=== PATIENT | male | born 1980 | race Caucasian/White ===

== ENCOUNTER 2017-01-21 14:39 | Inpatient (IN) | payer OTHER ==
[~2017-01-21] VITALS: Ht 172.7 cm; Wt 77.0 kg
[~2017-01-21 14:39] MED LIST: CYCL10TA6 PO; FLUT0.0529 NAE; HYDR-5688 PO; IBUP-103 PO; LANS30CA12 PO; PROP10TA7 PO; RANI1TAB75 PO; RST15 PO
[2017-01-21] MEDS ORDERED: FLNIN/ NAE (15:54)
[2017-01-21] MEDS ORDERED: ERYOPO1 OPR (15:54)
[2017-01-21] MEDS ORDERED: LANS30CA63 PO (15:54)
[2017-01-21] MEDS ORDERED: CYCL10TA7 PO (15:54)
[2017-01-21] MEDS ORDERED: BUPR100T8 PO (15:54)
--- NOTE | 2017-01-21 15:56 | EMERGENCY ROOM VISIT NOTE ---
History Report prepared by Zayra: Tristin Otero Under the Supervision of: Dr. Tristin Herbert M.D. First contact with patient: 15:14 Chief Complaint: DIZZY Stated Complaint: DIZZY Nursing Triage Summary: Pt reports "I started getting dizzy this morning. 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 He notes he had some dizziness this morning upon getting out of the shower before work. This occurred around 9:30. He notes this episode lasted about 15 minutes, and described it as "lightheadedness", but denies experiencing the room spinning. The episode resolved on its own. He still went to work, but throughout the day noticed left arm and hand weakness to the point where he was dropping things. He has been walking fine, and has not had any leg weakness. He reports having back pain at baseline, but that it was worse this morning which he describes as stiffness. The patient denies having any headache, difficulty speaking or swallowing, visual changes, or neck pain. He notes having a history of reflux and palpitation, and a family history of diabetes. He smokes, and drinks some alcohol. 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 Source of History: patient, spouse/significant other Onset: about 6 days ago Position: other (global) Symptom Intensity: episode lasting 15 minutes Quality: other (dizziness; "lightheadedness") Timing: other (episode) Associated Symptoms: + back pain (worse than baseline), + weakness (left arm and left hand; no leg weakness), No headache, No neck pain Note: The patient denies any difficulty speaking or swallowing, or visual changes. Review of Systems See HPI for pertinent positives & negatives. A total of 10 systems reviewed and were otherwise negative. Past Medical & Surgical Medical Problems: (1) Acute right MCA stroke (2) GERD (gastroesophageal reflux disease) (3) Hemorrhoid (4) Left hand weakness (5) Perianal abscess Old medical records were reviewed. Nurse's notes were reviewed and I agree with. Family History Diabetes mellitus Gallbladder disease Hypertension Social History Smoking Status: Current Every Day Smoker Alcohol Use: occasionally Marital Status: Housing Status: lives with significant other Occupation Status: employed Current/Historical Medications Scheduled Bupropion (Wellbutrin Sr), 100 MG PO AFTERNOON Bupropion HCl (Bupropion HCl Sr), 150 MG PO QAM Erythromycin (Erythromycin), 1 APPLN OPR QID Lansoprazole (Prevacid), 30 MG PO DAILY Multiple Vitamins W/ Minerals (Multi Adult Gummies), 2 TABS PO QAM Scheduled PRN Cyclobenzaprine HCl (Cyclobenzaprine HCl), 10 MG PO HS PRN for Muscle Spasm Fluticasone Propionate (Fluticasone Propionate), 1 SPRAY PANKAJ BID PRN for Allergy Symptoms Hydrocodone/Acetaminophen 5MG/325MG (Stroud 5MG/325MG), 0.5-1 TABLET PO BID PRN for Pain Ibuprofen Tab (Advil), 200-600 MG PO Q4H PRN for Pain Lorazepam (Lorazepam), 0.5 MG PO BID PRN for Anxiety Allergies Coded Allergies: Ciprofloxacin (Verified Allergy, Intermediate, NUEROMUSCULAR SPASMS/ TREMORS, 05/20/16) Physical Exam Vital Signs Date Time Temp Pulse Resp B/P Pulse Ox O2 Delivery O2 Flow Rate FiO2 01/21/17 22:57 74 18 109/64 96 Room Air Manual 01/21/17 20:25 63 18 116/68 97 Room Air 01/21/17 18:20 66 16 133/77 98 Room Air 01/21/17 16:30 50 16 128/69 99 Room Air 01/21/17 14:42 36.9 81 18 143/89 99 Room Air Physical Exam General: Non ill appearing young male in no acute distress. HEENT: Normal cephalic atraumatic. Pupils are equal round and reactive to light. Extraocular movements are intact. Oropharynx is pink with moist mucous membranes. No swelling of the mouth lips or tongue. Neck: Supple with a midline trachea. No meningeal signs or stiffness, no JVD or bruits. No Stridor. Chest: Clear to auscultation bilaterally. No wheezes or rhonchi. No increased work of breathing. Heart: regular rate and rhythm. Abdomen: Soft nontender, nondistended without rebound guarding or rigidity. Extremities: No cyanosis clubbing or edema. No calf tenderness or assymetry Spine/Back. Non tender to palpation. No CVA tenderness Skin: Good turgor without rashes. Neurologic exam: Equal wax molder strength, questionable mild pronator drift on left. Finger to nose intact. Cranial nerves II through XII intact. No tremor. Medical Decision & Procedures ER Provider Diagnostic Interpretation: X ray results as stated below per my interpretation and radiologist interpretation. Other radiology results as stated below per my review and radiologist interpretation: HEAD CT NONCONTRAST Findings: The paranasal sinuses and mastoid air cells are clear. The calvarium and skull base are intact. The ventricles and sulci are within normal limits. There is no mass, hematoma, midline shift, or acute infarct. Impression: No acute intracranial abnormality. Electronically signed by: Scotty Rossi M.D. 01/21/2017 4:25 PM Dictated Date/Time: 01/21/2017 4:24 PM Brain MRA FINDINGS: Visualized intracranial internal carotid arteries, distal vertebral arteries, and basilar artery are widely patent. 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 Focal 5 mm cutoff within a proximal right M2 branch best seen on image 89 of 176. There is reconstitution of this branch which demonstrates diminished perfusion. The remaining portions of the right MCA are patent. IMPRESSION: Focal 5 mm cutoff within a proximal M2 branch of the right MCA with immediate reconstitution but diminished perfusion. This is consistent with an area of thrombus. Electronically signed by: Rudy George M.D. 01/21/2017 8:35 PM Dictated Date/Time: 01/21/2017 7:44 PM Brain MRI WITH AND WITHOUT CONTRAST FINDINGS: Focal area of restricted diffusion within the right subinsular cortex measuring approximately 3.0 x 1.3 cm. This is consistent with an acute right MCA territory infarct and corresponds the findings of the same day brain MRA. There is associated cytotoxic edema at this location. There is no mass, hematoma, or midline shift. The paranasal sinuses and mastoid air cells are clear. Single punctate focus of T2 hyperintensity within the periventricular white matter the right frontal lobe likely represents an old lacunar infarct. Loss of the normal flow-void within a M2 branch of the right MCA consistent with the thrombus vessel. IMPRESSION: Small focal right MCA territory infarct as described above corresponding to the thrombosed M2 branch on the same day brain MRA. Electronically signed by: Rudy George M.D. 01/21/2017 8:26 PM Dictated Date/Time: 01/21/2017 8:19 PM NECK MRA FINDINGS: The aortic arch and proximal great vessels are widely patent. There is no significant stenosis, occlusion, or dissection identified within the bilateral common carotid, internal carotid, or vertebral arteries. IMPRESSION: No significant stenosis, occlusion, or dissection identified within the carotid or vertebral arteries. Electronically signed by: Rudy George M.D. 01/21/2017 8:17 PM Dictated Date/Time: 01/21/2017 8:14 PM Laboratory Results 01/21/17 15:16 Red Blood Count 5.47, Mean Corpuscular Volume 85.6, Mean Corpuscular Hemoglobin 30.9, Mean Corpuscular Hemoglobin Concent 36.1, Mean Platelet Volume 10.8, Neutrophils (%) (Auto) 76.1, Lymphocytes (%) (Auto) 15.4, Monocytes (%) (Auto) 6.6, Eosinophils (%) (Auto) 1.5, Basophils (%) (Auto) 0.2, Neutrophils # (Auto) 8.48, Lymphocytes # (Auto) 1.71, Monocytes # (Auto) 0.73, Eosinophils # (Auto) 0.17, Basophils # (Auto) 0.02 01/21/17 15:16 Test 01/21/17 15:16 01/21/17 16:36 01/21/17 22:36 White Blood Count 11.13 K/uL (4.8-10.8) Red Blood Count 5.47 M/uL (4.7-6.1) Hemoglobin 16.9 g/dL (14.0-18.0) Hematocrit 46.8 % (42-52) Mean Corpuscular Volume 85.6 fL (80-100) Mean Corpuscular Hemoglobin 30.9 pg (25-34) Mean Corpuscular Hemoglobin Concent 36.1 g/dl (32-36) Platelet Count 221 K/uL (130-400) Mean Platelet Volume 10.8 fL (7.4-10.4) Neutrophils (%) (Auto) 76.1 % Lymphocytes (%) (Auto) 15.4 % Monocytes (%) (Auto) 6.6 % Eosinophils (%) (Auto) 1.5 % Basophils (%) (Auto) 0.2 % Neutrophils # (Auto) 8.48 K/uL (1.4-6.5) Lymphocytes # (Auto) 1.71 K/uL (1.2-3.4) Monocytes # (Auto) 0.73 K/uL (0.11-0.59) Eosinophils # (Auto) 0.17 K/uL (0-0.5) Basophils # (Auto) 0.02 K/uL (0-0.2) RDW Standard Deviation 39.9 fL (36.4-46.3) RDW Coefficient of Variation 12.7 % (11.5-14.5) Immature Granulocyte % (Auto) 0.2 % Immature Granulocyte # (Auto) 0.02 K/uL (0.00-0.02) Anion Gap 9.0 mmol/L (3-11) Est Creatinine Clear Calc Drug Dose 99.8 ml/min Estimated GFR () 113.7 Estimated GFR (Non- 98.1 BUN/Creatinine Ratio 5.5 (10-20) Calcium Level 9.6 mg/dl (8.5-10.1) Total Bilirubin 0.5 mg/dl (0.2-1) Direct Bilirubin 0.1 mg/dl (0-0.2) Aspartate Amino Transf (AST/SGOT) 22 U/L (15-37) Alanine Aminotransferase (ALT/SGPT) 52 U/L (12-78) Alkaline Phosphatase 72 U/L (45-117) Total Protein 8.0 gm/dl (6.4-8.2) Albumin 4.8 gm/dl (3.4-5.0) Lipase 117 U/L (73-393) Bedside Troponin I 0.000 ng/ml (0-0.045) Laboratory studies as stated above per my review. Medications Administered Medications (Trade) Dose Ordered Sig/Arcelia Route Start Time Stop Time Status Last Admin Dose Admin Aspirin 324 mg 324 mg NOW STAT PO 01/21/17 20:53 01/21/17 20:54 DC 01/21/17 21:22 324 MG Sodium Chloride (Nss 1000ml) 1,000 ml @ 150 mls/hr Q6H40M ONCE IV 01/21/17 20:53 01/22/17 03:32 01/21/17 21:26 150 MLS/HR ECG Indication: other (dizziness) Rate (beats per minute): 79 Rhythm: normal sinus Findings: PVC (frequent), no acute ischemic change Comparison ECG Date: May 20, 2016 Change: PVCs now present. ED Course 1542: Past medical records reviewed. The patient was evaluated in room A9B, and a complete history and physical examination were performed. 1910: I reassessed the patient, he is resting comfortably waiting for CT. The charge nurse is checking to send the patient to CT. 2011: I spoke with Dr. Corea about the patient's case, who requested to see the MRA results. 2014: Ordered Magnevist 20 ml IV. 2041: I reassessed the patient and he is doing well. He has normal wax molder strength and some dizziness with walking, but feels better. 2052: Ordered NSS 1,000 ml @ 150 mls/hr IV, and Aspirin 324 mg PO. 2099: I spoke with Dr. Valero about the patient's case. The patient will be further evaluated and managed for disposition. 2154: I spoke with Dr. Crawford about the patient's case. She did not feel there was any technology at [facility] that would necessitate transfer and she recommended cardiac workup. Medical Decision Differentials include TIA, CVA, intracranial process, electrolyte or metabolic abnormality, vascular problems, and musculoskeletal problem. This patient comes in as described above. He was placed in room A9. He comes in after having an episode of dizziness this morning around 9:30. He went to work and was functioning normal except for he kept dropping things out of his left hand and felt clumsy. Besides that he's been otherwise asymptomatic and had no further dizziness. No trouble speaking or swallowing. No numbness weakness of his legs. No history of similar. No fall or trauma. IV access established. CAT scan of his head was obtained and multiple blood testing was obtained. He has some ectopy on this EKG but no ischemic changes or A. fib. He has so significant electrolyte or metabolic abnormalities. CAT scan was head is unremarkable. I did further discuss the case with Dr. Corea, who recommended MRI of his brain and MRA of the head and neck. The MRA and CAT scan of his head shows a M2 CVA thrombus. There appears to be good collaterals and no other abnormalities acutely seen except There may be an old frontal lacunar infarct. The patient was given aspirin 324 mg chewable as well as IV hydration. The patient was not given TPA as his symptoms were well outside the window and were extremely mild. He has some clumsiness of the left hand but no focal deficit with exception of mild pronator drift. I rechecked him later and he feels like his hands much better and he has no pronator drift. I did consult Dr. Cody, who saw the patient ER and I also talked to the stroke neurologist from [facility]. She did not feel there is any other interventions they had to offer there that we do not have here. She recommended hydration and aspirin and consideration for Keppra 500 mg twice a day. I did pass these recommendations on to Dr. Cody and the admitting team. The patient will be admitted for further treatment and evaluation from acardiac and thrombotic workup as well. The patient and his were happy with the plan and he will be admitted. Consults Time Called: 2057 Consulting Physician: Dr. Valero Returned Call: [address] Valero about the patient's case. The patient will be further evaluated and managed for disposition. Additional Consults: Time Called: 2004 Consulted Physician: Dr. Corea Returned Call: 2011 Additional Comments: I spoke with Dr. Corea about the patient's case, who requested to see the MRA results. Time Called: 2149 Consulted Physician: Dr. Crawford, Stroke Neurology at [facility] Returned Call: 2154 Additional Comments: I spoke with Dr. Crawford about the patient's case. She did not feel there was any technology at [facility] that would necessitate transfer and she recommended cardiac workup. Impression Primary Impression: CVA (cerebral vascular accident) Additional Impression: Left hand weakness Scribe Attestation The scribe's documentation has been prepared under my direction and personally reviewed by me in its entirety. I confirm that the note above accurately reflects all work, treatment, procedures, and medical decision making performed by me. Departure Information Dispostion Being Evaluated By Hospitalist Referrals Jair Casas PA-C (PCP) Patient Instructions My [facility] Problem Qualifiers
[2017-01-21 16:03] LABS: BASO % 0.2 %; BASO ABS # 0.02 K/uL (0-0.2); COMPLETE YES; EOS % 1.5 %; HEMATOCRIT 46.8 % (42-52); IG% 0.2 %; LYMPH % 15.4 %; LYMPH ABS # 1.71 K/uL (1.2-3.4); MEAN CELL VOLUME 85.6 fL (80-100); MEAN CORPUSCULAR HEMOGLOBIN 30.9 pg (25-34); MEAN CORPUSCULAR HGB CONC 36.1 g/dl (32-36); MEAN PLATELET VOLUME 10.8 fL (7.4-10.4); MONO % 6.6 %; NEUT % 76.1 %; PLATELET COUNT 221 K/uL (130-400); RED BLOOD COUNT 5.47 M/uL (4.7-6.1); WHITE BLOOD COUNT 11.13 K/uL (4.8-10.8)
[2017-01-21 16:11] LABS: BUN/CREATININE RATIO 5.5 (10-20); CALCIUM 9.6 mg/dl (8.5-10.1); CREATININE 0.98 mg/dl (0.60-1.40); POTASSIUM 3.7 mmol/L (3.5-5.1)
[2017-01-21] MEDS ORDERED: MULT1CHW37 PO (16:23)
--- NOTE | 2017-01-21 16:26 | DIAGNOSTIC IMAGING REPORT ---
HEAD CT NONCONTRAST CT DOSE: 614.27 mGy.cm HISTORY: Mental status change eval for cava, intracranial process TECHNIQUE: Multiaxial CT images of the head were performed without the use of intravenous contrast. Comparison: None. Findings: The paranasal sinuses and mastoid air cells are clear. The calvarium and skull base are intact. The ventricles and sulci are within normal limits. There is no mass, hematoma, midline shift, or acute infarct. Impression: No acute intracranial abnormality. Electronically signed by: Scotty Rossi M.D. 01/21/2017 4:25 PM Dictated Date/Time: 01/21/2017 4:24 PM
--- NOTE | 2017-01-21 19:49 | DIAGNOSTIC IMAGING REPORT ---
Brain MRA HISTORY: Dizziness. Left hand weakness. TECHNIQUE: 3-D [id number] MRA of the brain was performed without contrast. COMPARISON STUDY: Head CT 01/21/2017. FINDINGS: Visualized intracranial internal carotid arteries, distal vertebral arteries, and basilar artery are widely patent. 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 Focal 5 mm cutoff within a proximal right M2 branch best seen on image 89 of 176. There is reconstitution of this branch which demonstrates diminished perfusion. The remaining portions of the right MCA are patent. IMPRESSION: Focal 5 mm cutoff within a proximal M2 branch of the right MCA with immediate reconstitution but diminished perfusion. This is consistent with an area of thrombus. Electronically signed by: Rudy George M.D. 01/21/2017 8:35 PM Dictated Date/Time: 01/21/2017 7:44 PM
[2017-01-21] MEDS ORDERED: MAGNEVIST IV PRN (20:15)
--- NOTE | 2017-01-21 20:19 | DIAGNOSTIC IMAGING REPORT ---
NECK MRA HISTORY: Dizziness. Left hand weakness. eval for vascular pathology TECHNIQUE: [id number] and gadolinium-enhanced MRA of the neck was performed both before and after the intravenous administration of contrast. All measurements were calculated based on NASCET criteria. COMPARISON STUDY: None. FINDINGS: The aortic arch and proximal great vessels are widely patent. There is no significant stenosis, occlusion, or dissection identified within the bilateral common carotid, internal carotid, or vertebral arteries. IMPRESSION: No significant stenosis, occlusion, or dissection identified within the carotid or vertebral arteries. Electronically signed by: Rudy George M.D. 01/21/2017 8:17 PM Dictated Date/Time: 01/21/2017 8:14 PM
--- NOTE | 2017-01-21 20:35 | DIAGNOSTIC IMAGING REPORT ---
Brain MRI WITH AND WITHOUT CONTRAST HISTORY: eval for left hand cluminess, episode of dizziness TECHNIQUE: Multiplanar multisequence MRI of the brain was performed both before and after the intravenous administration of contrast. COMPARISON STUDY: Head CT 01/21/2017. FINDINGS: Focal area of restricted diffusion within the right subinsular cortex measuring approximately 3.0 x 1.3 cm. This is consistent with an acute right MCA territory infarct and corresponds the findings of the same day brain MRA. There is associated cytotoxic edema at this location. There is no mass, hematoma, or midline shift. The paranasal sinuses and mastoid air cells are clear. Single punctate focus of T2 hyperintensity within the periventricular white matter the right frontal lobe likely represents an old lacunar infarct. Loss of the normal flow-void within a M2 branch of the right MCA consistent with the thrombus vessel. IMPRESSION: Small focal right MCA territory infarct as described above corresponding to the thrombosed M2 branch on the same day brain MRA. Electronically signed by: Rudy George M.D. 01/21/2017 8:26 PM Dictated Date/Time: 01/21/2017 8:19 PM
[2017-01-21] MEDS ORDERED: WLLSR150 PO (20:36)
[2017-01-21] MEDS ORDERED: ATV5X PO (20:36)
[2017-01-21] MEDS ORDERED: SODIUM CHLORIDE 0.9% 1000ML 1,000 ML IV ONE (20:53)
[2017-01-21] MEDS ORDERED: ASPIRIN 324 MG CHEW PO STA (20:53)
[2017-01-21] MEDS ORDERED: PHARMACIST DISCHARGE MED REC CONSULT PRN (22:45)
[2017-01-21] MEDS ORDERED: FLUTICASONE PROPIONATE NA SPR 16 GM BTL NAE PRN (22:45)
[2017-01-21] MEDS ORDERED: HYDROCODONE/ACETAMOPHEN 5/325MG TAB PO PRN (22:45)
[2017-01-21] MEDS ORDERED: LORAZEPAM 0.5 MG TAB PO PRN (22:45)
[2017-01-21] MEDS ORDERED: ONDANSETRON INJ 2 MG/ML 2 ML VIAL IV PRN (22:45)
[2017-01-21] MEDS ORDERED: NICOTINE 14 MG/24 HR TDSY TD ONE (22:45)
[2017-01-21] MEDS ORDERED: CYCLOBENZAPRINE HCL 10 MG TAB PO PRN (22:45)
[2017-01-21] MEDS ORDERED: ZOLPIDEM TARTRATE 5 MG TAB PO PRN (22:45)
[2017-01-21] MEDS ORDERED: ACETAMINOPHEN 325 MG TAB PO PRN (22:45)
[2017-01-21 23:19] LABS: CHOLESTEROL/HDL RATIO 4.3
[2017-01-22] VITALS (8 sets, daily range): BP systolic 104–143; BP diastolic 59–97; PULSE 66–90; TEMP 36.5–37.3; O2SAT 94–97; Ht 172.7 cm; Wt 77.0 kg
--- NOTE | 2017-01-22 04:30 | History and Physical ---
History & Physical Date & Time of Service: Jan 22, 2017 at 04:13 Chief Complaint: Acute Right Mca Stroke, Left Hand Weakness Primary Care Physician: Jair Casas PA-C History of Present Illness Source: patient, spouse The patient is a 36-year-old male who presents to the emergency department with report of an episode of dizziness that occurred around 9:30 in the morning, of 15 minute duration, followed by the development of left arm and hand weakness to the point where he was unable to control to use, and dropped objects he was trying to hold onto. He reported to the emergency department over 7 hours later he reports that his symptoms had essentially normalized by that time. He did not have any issues with speaking, swallowing, headache, left leg weakness. He has not had any similar occurrence of this in the past. He has not had any recent change in activities, eating patterns, sleep patterns. His does report however that he has had significant stress at work and with his father who has brain cancer. He does smoke daily, and does drink some alcohol. 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 Past Medical/Surgical History Medical Problems: (1) GERD (gastroesophageal reflux disease) Status: Chronic (2) Hemorrhoid Status: Resolved (3) Perianal abscess Status: Resolved Family History Diabetes mellitus Gallbladder disease Hypertension Social History Smoking Status: Current Every Day Smoker Smokeless Tobacco Use: No Alcohol Use: occasionally Drug Use: none Marital Status: Housing status: lives with family Occupational Status: employed Multi-Drug Resistant Organisms History of MDRO: No Allergies Coded Allergies: Ciprofloxacin (Verified Allergy, Intermediate, NUEROMUSCULAR SPASMS/ TREMORS, 05/20/16) Home Medications Scheduled Bupropion (Wellbutrin Sr), 100 MG PO AFTERNOON Bupropion HCl (Bupropion HCl Sr), 150 MG PO QAM Erythromycin (Erythromycin), 1 APPLN OPR QID Lansoprazole (Prevacid), 30 MG PO DAILY Multiple Vitamins W/ Minerals (Multi Adult Gummies), 2 TABS PO QAM Scheduled PRN Cyclobenzaprine HCl (Cyclobenzaprine HCl), 10 MG PO HS PRN for Muscle Spasm Fluticasone Propionate (Fluticasone Propionate), 1 SPRAY PANKAJ BID PRN for Allergy Symptoms Hydrocodone/Acetaminophen 5MG/325MG ([place] 5MG/325MG), 0.5-1 TABLET PO BID PRN for Pain Ibuprofen Tab (Advil), 200-600 MG PO Q4H PRN for Pain Lorazepam (Lorazepam), 0.5 MG PO BID PRN for Anxiety Review of Systems The patient denies chest pain, palpitations, shortness of breath, cough, lower extremity swelling, vision change, hearing change, sore throat, fevers, chills, sweats, weight change, fatigue, nausea, vomiting, abdominal pain, pelvic pain, blood in urine or stool, dysuria, urinary frequency or urgency, memory loss, rash, abnormal bruising or bleeding, generalized weakness, numbness or tingling in legs, arthralgias or myalgias, back or neck pain, night sweats, or allergy symptoms. The review of systems is otherwise negative other than for that already noted above, and at least 10 systems have been reviewed. Physical Exam Vital Signs Date Time Temp Pulse Resp B/P Pulse Ox O2 Delivery O2 Flow Rate FiO2 01/22/17 03:41 36.7 66 18 126/64 96 Room Air 01/21/17 22:57 74 18 109/64 96 Room Air Manual 01/21/17 20:25 63 18 116/68 97 Room Air 01/21/17 18:20 66 16 133/77 98 Room Air 01/21/17 16:30 50 16 128/69 99 Room Air 01/21/17 14:42 36.9 81 18 143/89 99 Room Air The patient is awake, well-developed and adequately nourished, alert and oriented 3, normocephalic and atraumatic, lying in bed and in no acute distress. HEENT--PERRL, EOMI, mucous membranes and oropharynx dry. Neck--supple, no JVD or bruits, thyroid normal, trachea midline, no adenopathy. Heart--normal S1 and S2, no extra beats, no murmurs, rubs or gallops. Lungs--clear bilaterally with good air movement, no respiratory distress, no accessory muscle use. Abdomen--normal bowel sounds and soft, nontender and nondistended, no hernias or masses, no organomegaly. Extremities--no cyanosis, clubbing or edema. There are good distal pulses b/l. Dermatologic--normal skin turgor, normal color, warm and dry, no abnormal lymph nodes, no rash. Neurologic--cranial nerves II through XII grossly intact, motor and sensory examination normal. Rheumatologic--normal range of motion, nontender, muscles and joints. Psychiatric--normal affect. Diagnostics Laboratory Results Results Past 24 Hours Test 01/21/17 15:16 01/21/17 16:36 01/21/17 23:25 Range/Units White Blood Count 11.13 4.8-10.8 K/uL Red Blood Count 5.47 4.7-6.1 M/uL Hemoglobin 16.9 14.0-18.0 g/dL Hematocrit 46.8 42-52 % Mean Corpuscular Volume 85.6 80-100 fL Mean Corpuscular Hemoglobin 30.9 25-34 pg Mean Corpuscular Hemoglobin Concent 36.1 32-36 g/dl Platelet Count 221 130-400 K/uL Mean Platelet Volume 10.8 7.4-10.4 fL Neutrophils (%) (Auto) 76.1 % Lymphocytes (%) (Auto) 15.4 % Monocytes (%) (Auto) 6.6 % Eosinophils (%) (Auto) 1.5 % Basophils (%) (Auto) 0.2 % Neutrophils # (Auto) 8.48 1.4-6.5 K/uL Lymphocytes # (Auto) 1.71 1.2-3.4 K/uL Monocytes # (Auto) 0.73 0.11-0.59 K/uL Eosinophils # (Auto) 0.17 0-0.5 K/uL Basophils # (Auto) 0.02 0-0.2 K/uL RDW Standard Deviation 39.9 36.4-46.3 fL RDW Coefficient of Variation 12.7 11.5-14.5 % Immature Granulocyte % (Auto) 0.2 % Immature Granulocyte # (Auto) 0.02 0.00-0.02 K/uL Sodium Level 142 136-145 mmol/L Potassium Level 3.7 3.5-5.1 mmol/L Chloride Level 105 98-107 mmol/L Carbon Dioxide Level 28 21-32 mmol/L Anion Gap 9.0 3-11 mmol/L Blood Urea Nitrogen 5 7-18 mg/dl Creatinine 0.98 0.60-1.40 mg/dl Est Creatinine Clear Calc Drug Dose 99.8 ml/min Estimated GFR () 113.7 Estimated GFR (Non- 98.1 BUN/Creatinine Ratio 5.5 10-20 Random Glucose 92 70-99 mg/dl Calcium Level 9.6 8.5-10.1 mg/dl Total Bilirubin 0.5 0.2-1 mg/dl Direct Bilirubin 0.1 0-0.2 mg/dl Aspartate Amino Transf (AST/SGOT) 22 15-37 U/L Alanine Aminotransferase (ALT/SGPT) 52 12-78 U/L Alkaline Phosphatase 72 45-117 U/L Total Protein 8.0 6.4-8.2 gm/dl Albumin 4.8 3.4-5.0 gm/dl Triglycerides Level 154 0-150 mg/dl Cholesterol Level 230 0-200 mg/dl HDL Cholesterol 53 mg/dl LDL Cholesterol, Calculated 146 mg/dl VLDL Cholesterol, Calculated 31 mg/dl Cholesterol/HDL Ratio 4.3 Lipase 117 73-393 U/L Bedside Troponin I 0.000 0-0.045 ng/ml Diagnostic Radiology Patient Name: BERENICE AGUIRRE Unit Number: [id number] Dictated: 01/21/171623 Transcribed: 01/21/171623 MS Printed Date/Time: [~ rep prt dt]/[~ rep prt tm] [~ rep ct labl] - [~ rep ct ivnm] [facility] [place] [address] Dictated: 01/21/171623 Transcribed: 01/21/171623 MS Printed Date/Time: [~ rep prt dt]/[~ rep prt tm] [~ rep ct labl] - [~ rep ct ivnm] HEAD CT NONCONTRAST CT DOSE: 614.27 mGy.cm HISTORY: Mental status change eval for cava, intracranial process TECHNIQUE: Multiaxial CT images of the head were performed without the use of intravenous contrast. Comparison: None. Findings: The paranasal sinuses and mastoid air cells are clear. The calvarium and skull base are intact. The ventricles and sulci are within normal limits. There is no mass, hematoma, midline shift, or acute infarct. Impression: No acute intracranial abnormality. Electronically signed by: Scotty Rossi M.D. 01/21/2017 4:25 PM Dictated Date/Time: 01/21/2017 4:24 PM The status of this report is Signed. Draft = Not yet reviewed or approved by Radiologist. Signed = Reviewed and approved by Radiologist. <AttendingPhy></AttendingPhy> <FamilyPhy>Jair Casas PA-C</FamilyPhy> < PrimaryPhy>Jair Casas PA-C</PrimaryPhy> <UnitNumber>[id number]</ UnitNumber> <VisitNumber>[id number]</VisitNumber> <PatientName>BERENICE AGUIRRE</PatientName> <DateOfBirth>1980</DateOfBirth> <Location>[facility] </Location> <ServiceDate>01/21/17</ServiceDate> <MNE>ESINDI</MNE> <OrderingPhy> Tristin Herbert M.D.</OrderingPhy> <OrderingPhyMNE>f rep ord dr whitehead</ OrderingPhyMNE> <DictatingPhyMNE>f rep dict dr whitehead</DictatingPhyMNE> <CCListMNE> f rep ct mne</CCListMNE> <AdmittingPhyMNE>f pt admit dr whitehead</AdmittingPhyMNE> < AttendingPhyMNE>f pt attend dr whitehead</AttendingPhyMNE> <ConsultingPhyMNE>f pt consult dr whitehead</ConsultingPhyMNE> <FamilyPhyMNE>f pt fam dr whitehead</FamilyPhyMNE> <OtherPhyMNE>f pt other dr whitehead</OtherPhyMNE> < PrimaryPhyMNE>f pt prim care dr whitehead</PrimaryPhyMNE> <ReferringPhyMNE>f pt referring dr whitehead</ReferringPhyMNE> Patient Name: BERENICE AGUIRRE Unit Number: [id number] Dictated: 01/21/171943 Transcribed: 01/21/171948 MIRIAN Printed Date/Time: [~ rep prt dt]/[~ rep prt tm] [~ rep ct labl] - [~ rep ct ivnm] [facility] [place] [address] Dictated: 01/21/171943 Transcribed: 01/21/171948 MIRIAN Printed Date/Time: [~ rep prt dt]/[~ rep prt tm] [~ rep ct labl] - [~ rep ct ivnm] [~ rep ct add3]] Brain MRA HISTORY: Dizziness. Left hand weakness. TECHNIQUE: 3-D [id number] MRA of the brain was performed without contrast. COMPARISON STUDY: Head CT 01/21/2017. FINDINGS: Visualized intracranial internal carotid arteries, distal vertebral arteries, and basilar artery are widely patent. There is no significant stenosis, occlusion, or aneurysm seen within the bilateral ACAs, left MCA, or scientific diver. Focal 5 mm cutoff within a proximal right M2 branch best seen on image 89 of 176. There is reconstitution of this branch which demonstrates diminished perfusion. The remaining portions of the right MCA are patent. IMPRESSION: Focal 5 mm cutoff within a proximal M2 branch of the right MCA with immediate reconstitution but diminished perfusion. This is consistent with an area of thrombus. Electronically signed by: Rudy George M.D. 01/21/2017 8:35 PM Dictated Date/Time: 01/21/2017 7:44 PM The status of this report is Signed. Draft = Not yet reviewed or approved by Radiologist. Signed = Reviewed and approved by Radiologist. <AttendingPhy></AttendingPhy> <FamilyPhy>Jair Casas PA-C</FamilyPhy> < PrimaryPhy>Jair Casas PA-C</PrimaryPhy> <UnitNumber>[id number]</ UnitNumber> <VisitNumber>[id number]</VisitNumber> <PatientName>BERENICE AGUIRRE</PatientName> <DateOfBirth>1980</DateOfBirth> <Location>[facility] </Location> <ServiceDate>01/21/17</ServiceDate> <MNE>ESINDI</MNE> <OrderingPhy> Tristin Herbert M.D.</OrderingPhy> <OrderingPhyMNE>f rep ord dr whitehead</ OrderingPhyMNE> <DictatingPhyMNE>f rep dict dr whitehead</DictatingPhyMNE> <CCListMNE> f rep ct mne</CCListMNE> <AdmittingPhyMNE>f pt admit dr whitehead</AdmittingPhyMNE> < AttendingPhyMNE>f pt attend dr whitehead</AttendingPhyMNE> <ConsultingPhyMNE>f pt consult dr whitehead</ConsultingPhyMNE> <FamilyPhyMNE>f pt fam dr whitehead</FamilyPhyMNE> <OtherPhyMNE>f pt other dr whitehead</OtherPhyMNE> < PrimaryPhyMNE>f pt prim care dr whitehead</PrimaryPhyMNE> <ReferringPhyMNE>f pt referring dr whitehead</ReferringPhyMNE> Patient Name: BERENICE AGUIRRE Unit Number: [id number] Dictated: 01/21/172018 Transcribed: 01/21/172018 [employer] Printed Date/Time: [~ rep prt dt]/[~ rep prt tm] [~ rep ct labl] - [~ rep ct ivnm] [facility] Radiology Department [place] [id number] Dictated: 01/21/172018 Transcribed: 01/21/172018 [employer] Printed Date/Time: [~ rep prt dt]/[~ rep prt tm] [~ rep ct labl] - [~ rep ct ivnm] [~ rep ct add3]] Brain MRI WITH AND WITHOUT CONTRAST HISTORY: eval for left hand cluminess, episode of dizziness TECHNIQUE: Multiplanar multisequence MRI of the brain was performed both before and after the intravenous administration of contrast. COMPARISON STUDY: Head CT 01/21/2017. FINDINGS: Focal area of restricted diffusion within the right subinsular cortex measuring approximately 3.0 x 1.3 cm. This is consistent with an acute right MCA territory infarct and corresponds the findings of the same day brain MRA. There is associated cytotoxic edema at this location. There is no mass, hematoma, or midline shift. The paranasal sinuses and mastoid air cells are clear. Single punctate focus of T2 hyperintensity within the periventricular white matter the right frontal lobe likely represents an old lacunar infarct. Loss of the normal flow-void within a M2 branch of the right MCA consistent with the thrombus vessel. IMPRESSION: Small focal right MCA territory infarct as described above corresponding to the thrombosed M2 branch on the same day brain MRA. Electronically signed by: Rudy George M.D. 01/21/2017 8:26 PM Dictated Date/Time: 01/21/2017 8:19 PM The status of this report is Signed. Draft = Not yet reviewed or approved by Radiologist. Signed = Reviewed and approved by Radiologist. <AttendingPhy></AttendingPhy> <FamilyPhy>Jair Casas PA-C</FamilyPhy> < PrimaryPhy>Jair Casas PA-C</PrimaryPhy> <UnitNumber>[id number]</ UnitNumber> <VisitNumber>[id number]</VisitNumber> <PatientName>AGUIRRE, BERENICE MEJIA</PatientName> <DateOfBirth>1980</DateOfBirth> <Location>[facility] </Location> <ServiceDate>01/21/17</ServiceDate> <MNE>ESINDI</MNE> <OrderingPhy> Tristin Herbert M.D.</OrderingPhy> <OrderingPhyMNE>f rep ord dr whitehead</ OrderingPhyMNE> <DictatingPhyMNE>f rep dict dr whitehead</DictatingPhyMNE> <CCListMNE> f rep ct mne</CCListMNE> <AdmittingPhyMNE>f pt admit dr whitehead</AdmittingPhyMNE> < AttendingPhyMNE>f pt attend dr whitehead</AttendingPhyMNE> <ConsultingPhyMNE>f pt consult dr whitehead</ConsultingPhyMNE> <FamilyPhyMNE>f pt fam dr whitehead</FamilyPhyMNE> <OtherPhyMNE>f pt other dr whitehead</OtherPhyMNE> < PrimaryPhyMNE>f pt prim care dr whitehead</PrimaryPhyMNE> <ReferringPhyMNE>f pt referring dr whitehead</ReferringPhyMNE> Patient Name: BERENICE AGUIRRE Unit Number: [id number] Dictated: 01/21/172013 Transcribed: 01/21/172013 PAJ Printed Date/Time: [~ rep prt dt]/[~ rep prt tm] [~ rep ct labl] - [~ rep ct ivnm] [facility] [place] [address] Dictated: 01/21/172013 Transcribed: 01/21/172013 PA Printed Date/Time: [~ rep prt dt]/[~ rep prt tm] [~ rep ct labl] - [~ rep ct ivnm] NECK MRA HISTORY: Dizziness. Left hand weakness. eval for vascular pathology TECHNIQUE: Brmv-yb-jvgvmx and gadolinium-enhanced MRA of the neck was performed both before and after the intravenous administration of contrast. All measurements were calculated based on NASCET criteria. COMPARISON STUDY: None. FINDINGS: The aortic arch and proximal great vessels are widely patent. There is no significant stenosis, occlusion, or dissection identified within the bilateral common carotid, internal carotid, or vertebral arteries. IMPRESSION: No significant stenosis, occlusion, or dissection identified within the carotid or vertebral arteries. Electronically signed by: Rudy George M.D. 01/21/2017 8:17 PM Dictated Date/Time: 01/21/2017 8:14 PM The status of this report is Signed. Draft = Not yet reviewed or approved by Radiologist. Signed = Reviewed and approved by Radiologist. <AttendingPhy></AttendingPhy> <FamilyPhy>Jair Casas PA-C</FamilyPhy> < PrimaryPhy>Jair Casas PA-C</PrimaryPhy> <UnitNumber>[id number]</ UnitNumber> <VisitNumber>[id number]</VisitNumber> <PatientName>BERENICE AGUIRRE</PatientName> <DateOfBirth>1980</DateOfBirth> <Location>[facility] </Location> <ServiceDate>01/21/17</ServiceDate> <MNE>ESINDI</MNE> <OrderingPhy> Tristin Herbert M.D.</OrderingPhy> <OrderingPhyMNE>f rep ord dr whitehead</ OrderingPhyMNE> <DictatingPhyMNE>f rep dict dr whitehead</DictatingPhyMNE> <CCListMNE> f rep ct mne</CCListMNE> <AdmittingPhyMNE>f pt admit dr whitehead</AdmittingPhyMNE> < AttendingPhyMNE>f pt attend dr whitehead</AttendingPhyMNE> <ConsultingPhyMNE>f pt consult dr whitehead</ConsultingPhyMNE> <FamilyPhyMNE>f pt fam dr whitehead</FamilyPhyMNE> <OtherPhyMNE>f pt other dr whitehead</OtherPhyMNE> < PrimaryPhyMNE>f pt prim care dr whitehead</PrimaryPhyMNE> <ReferringPhyMNE>f pt referring dr whitehead</ReferringPhyMNE> EKG EKG shows normal sinus rhythm at 79 bpm, with frequent PVCs, and no acute ST-T changes. 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 He did have a significant workup by the ED including CT of the head, MRA of the head without contrast, MRA of the neck with contrast, and an MRI of brain combo. I did ask emergency department personnel to speak with neurology at [facility] to see if they had any type of program that would still be considered a possibility for someone who is outside the TPA window in his situation, and they reported that they would suggest doing what we already had planned, which is placing the patient on aspirin daily, performing a hypercoagulable workup, and controlling blood pressure and cholesterol. They also suggested starting Keppra 500 mg by mouth twice a day for seizure prevention. We'll also order an EEG, and consult neurology, PT and OT. Depression--continue bupropion SR 150 mg by mouth every morning and 100 mg by mouth every afternoon. Gastroesophageal reflux disease--change Prevacid 30 mg by mouth daily to pantoprazole 40 mg by mouth daily. Level of Care Telemetry Advanced Directives Existing Advance Directive: No Existing Living Will: No Existing Power of Spool Cleaner Hand: No Resuscitation Status FULL RESUSCITATION VTE Prophylaxis VTE Risk Assessment Done? Y/N: Yes Risk Level: Moderate Given or contraindicated: SCD's Social Service Consult None Apply
[2017-01-22 04:45] LABS: BASO % 0.2 %; BASO ABS # 0.02 K/uL (0-0.2); COMPLETE YES; EOS % 2.8 %; HEMATOCRIT 42.4 % (42-52); IG% 0.2 %; LYMPH % 26.8 %; LYMPH ABS # 2.81 K/uL (1.2-3.4); MEAN CELL VOLUME 83.5 fL (80-100); MEAN CORPUSCULAR HEMOGLOBIN 30.3 pg (25-34); MEAN CORPUSCULAR HGB CONC 36.3 g/dl (32-36); MEAN PLATELET VOLUME 10.1 fL (7.4-10.4); MONO % 6.8 %; NEUT % 63.2 %; PLATELET COUNT 188 K/uL (130-400); RED BLOOD COUNT 5.08 M/uL (4.7-6.1)
[2017-01-22 04:57] LABS: INR 1.1 (0.9-1.1); PARTIAL THROMBOPLASTIN RATIO 1.1; PROTHROMBIN TIME (PATIENT) 11.4 SECONDS (9.0-12.0)
[2017-01-22 05:04] LABS: ALT/SGPT 46 U/L (12-78); AST/SGOT 21 U/L (15-37); BLOOD UREA NITROGEN 8 mg/dl (7-18); BUN/CREATININE RATIO 10.2 (10-20); CALCIUM 8.7 mg/dl (8.5-10.1); CARBON DIOXIDE 27 mmol/L (21-32); CHLORIDE 107 mmol/L (98-107); CREATININE 0.83 mg/dl (0.60-1.40); GLUCOSE 85 mg/dl (70-99); MAGNESIUM 2.4 mg/dl (1.8-2.4); POTASSIUM 3.8 mmol/L (3.5-5.1); SODIUM 143 mmol/L (136-145)
[2017-01-22 05:15] LABS: ALKALINE PHOSPHATASE 62 U/L (45-117)
[2017-01-22 06:11] LABS: ESTIMATED AVERAGE GLUCOSE 105 mg/dl; HA1C FLAG Normal (Normal)
[2017-01-22] MEDS ORDERED: LEVETIRACETAM 500 MG TAB PO SCH (09:00)
[2017-01-22] MEDS: PANTOprazole SOD 40 MG TAB PO SCH (10:37)
[2017-01-22] MEDS: CEROVITE ADV FORMULA TAB PO SCH (10:37)
[2017-01-22] MEDS: BuPROPion SR 100 MG TABCR PO SCH ×2 (10:37→14:37)
[2017-01-22] MEDS: ASPIRIN 81 MG ECTAB PO SCH (10:37)
[2017-01-22] MEDS: NICOTINE 14 MG/24 HR TDSY TD SCH (10:38)
[2017-01-22] MEDS: ATORVASTATIN 20 MG TAB PO SCH (10:38)
[2017-01-22] MEDS: BuPROPion SR 150 MG TABCR PO SCH (10:38)
--- NOTE | 2017-01-22 11:00 | Neurology Consultation ---
Neurology Consultation Date of Consultation: Jan 22, 2017. Attending Physician: Tomas Fisher MD Primary Care Physician: Jair Casas PA-C Reason for Consultation: Acute stroke History of Present Illness Source: patient, hospital records This is a 36-year-old right-handed male who presents to the emergency room for acute neurological symptoms. He reports that when he was going to work around 8 or 9 AM yesterday he had an episode of feeling lightheaded and dizzy. No vertigo symptoms. Later on at work at around 10 AM he noted that his left upper extremity was weak mostly in his hand. She was dropping things. Around noon it became worse and the patient decided to go to the emergency room in the afternoon. Because his symptoms were outside of TPA window, he did not receive any IV TPA. This morning the patient reports that he is nearly back to normal but still has some residual symptoms in his left hand. He denies ever having any acute changes in his vision or speech. No changes with his cognition. No facial symptoms. No symptoms in the legs or right upper extremity. He denies any chest pain or shortness of breath. He reports long-standing heart palpitations. MRI of the brain report and images reviewed by myself and noted to have a acute right MCA territory ischemic stroke with a punctate area of ischemia in the same territory. MRA of the head and neck is unremarkable except for thrombus in the M2 region of the right MCA. Specifically there is no arterial dissection seen. Labs were reviewed. Total cholesterol 230, LDL 146, HDL 53, triglycerides 154. Hemoglobin A1c 5.3 Past Medical/Surgical History Medical Problems: (1) CVA (cerebral vascular accident) Status: Acute Heart palpitations GERD Migraine with aura (reports that he gets a migraine about once per year and typically relieved with [id number] NSAIDs and rest) Family History Mother with diabetes type 1. A cousin with valvular disorder. Denies any family history of strokes or heart attack at a young age. Denies any family history of clotting disorders Social History Patient works at a [employer]. Independent in his activities of daily living. Drinks rarely. Smokes a half pack per day. No illegal drug use or supplement use. Smoking Status: Current some day smoker Smokeless Tobacco Use: No Alcohol Use: occasionally Drug Use: none Marital Status: Housing Status: lives with significant other Occupation Status: employed Allergies Coded Allergies: Ciprofloxacin (Verified Allergy, Intermediate, NUEROMUSCULAR SPASMS/ TREMORS, 05/20/16) Current Inpatient Medications Current Inpatient Medications Medications (Trade) Dose Ordered Sig/Arcelia Route Start Time Stop Time Status Last Admin Dose Admin Gadopentetate Dimeglumine (Magnevist) 20 ml UD PRN IV 01/21/17 20:15 01/25/17 20:14 Atorvastatin Calcium (Lipitor Tab) 20 mg QAM PO 01/22/17 09:00 02/21/17 08:59 01/22/17 10:38 20 MG Aspirin (Ecotrin Tab) 81 mg QAM PO 01/22/17 09:00 02/21/17 08:59 01/22/17 10:37 81 MG Miscellaneous Information (Pharmacist Discharge Med Rec Consult) 1 ea UD PRN N/A 01/21/17 22:45 02/20/17 22:44 Acetaminophen (Tylenol Tab) 650 mg Q4H PRN PO 01/21/17 22:45 02/20/17 22:44 Zolpidem Tartrate (Ambien Tab) 5 mg HSZ PRN PO 01/21/17 22:45 02/20/17 22:44 Bupropion HCl (Wellbutrin-Sr Tab) 100 mg DAILY@1400 PO 01/22/17 14:00 02/21/17 13:59 Bupropion HCl (Wellbutrin-Sr Tab) 150 mg QAM PO 01/22/17 09:00 02/21/17 08:59 01/22/17 10:38 150 MG Cyclobenzaprine HCl (Flexeril Tab) 10 mg HS PRN PO 01/21/17 22:45 02/20/17 22:44 Fluticasone Propionate (Flonase Nasal [place]) BID PRN PANKAJ 01/21/17 22:45 02/20/17 22:44 Acetaminophen/ Hydrocodone Bitart ([place] 5/325 Tab) 1 tab BID PRN PO 01/21/17 22:45 02/04/17 22:44 Lorazepam (Ativan Tab) 0.5 mg BID PRN PO 01/21/17 22:45 02/20/17 22:44 Multivitamins/ Minerals (Multivitamin W/ Minerals Tab) 2 tab QAM PO 01/22/17 09:00 02/21/17 08:59 01/22/17 10:37 2 TAB Pantoprazole Sodium (Protonix Tab) 40 mg QAM PO 01/22/17 09:00 02/21/17 08:59 01/22/17 10:37 40 MG Ondansetron HCl (Zofran Inj) 4 mg Q6H PRN IV 01/21/17 22:45 02/20/17 22:44 Nicotine (Nicoderm Cq 14MG Patch) 1 patch QAM TD 01/22/17 09:00 02/21/17 08:59 01/22/17 10:38 1 PATCH Miscellaneous (Remove Nicoderm Patch) 1 ea HS N/A 01/22/17 21:00 02/21/17 20:59 Levetiracetam (Keppra Tab) 500 mg BID PO 01/22/17 09:00 02/21/17 08:59 Review of Systems Review of systems otherwise negative except for the above noted in history of present illness Physical Exam Vital Signs (Past 24 Hrs): Date Time Temp Pulse Resp B/P Pulse Ox O2 Delivery O2 Flow Rate FiO2 01/22/17 07:30 68 01/22/17 03:41 36.7 66 18 126/64 96 Room Air 01/21/17 22:57 74 18 109/64 96 Room Air Manual 01/21/17 20:25 63 18 116/68 97 Room Air 01/21/17 18:20 66 16 133/77 98 Room Air 01/21/17 16:30 50 16 128/69 99 Room Air 01/21/17 14:42 36.9 81 18 143/89 99 Room Air Gen.: Patient is alert and sitting in bed, in no acute distress. HEENT: Normocephalic /atraumatic, no scleral icterus Heart: Regular rate and rhythm Extremities: No gross deformities or rashes noted Neurological examination: Mental status: Patient is alert and oriented x3. Attention and concentration normal for the situation. Good fund of knowledge. Able to give her own history. Speech is fluent without any dysarthria or aphasia noted Cranial nerve: Funduscopic examination was unremarkable. No papilledema. Pupils equally round and reactive to light. Extraocular muscles intact without nystagmus. No facial asymmetry noted. Facial sensation intact. Tongue is midline. Good palatal elevation. Good shoulder shrug bilaterally. Hearing grossly intact to voice. Strength: 5/5 both proximal and distally in all extremities with the exception of 4+/5 in finger flexion on the left. There is no arm drift. Tone is normal. Sensation: Grossly intact to light touch in all extremities. Deep tendon reflexes: +2 in bilateral biceps, brachioradialis and patellar. Toes were downgoing to plantar stimulation on the right and equivocal on the left Coordination: Patient had good finger to nose without dysmetria Station within the bed was normal Laboratory Results Past 24 Hours: 01/22/17 04:37 Red Blood Count 5.08, Mean Corpuscular Volume 83.5, Mean Corpuscular Hemoglobin 30.3, Mean Corpuscular Hemoglobin Concent 36.3, Mean Platelet Volume 10.1, Neutrophils (%) (Auto) 63.2, Lymphocytes (%) (Auto) 26.8, Monocytes (%) (Auto) 6.8, Eosinophils (%) (Auto) 2.8, Basophils (%) (Auto) 0.2, Neutrophils # (Auto) 6.65, Lymphocytes # (Auto) 2.81, Monocytes # (Auto) 0.71, Eosinophils # (Auto) 0.29, Basophils # (Auto) 0.02 01/22/17 04:37 Test 01/21/17 15:16 01/21/17 16:36 01/21/17 23:25 01/22/17 04:37 Estimated Average Glucose 105 mg/dl Hemoglobin A1c 5.3 % (4.5-5.6) Triglycerides Level 154 mg/dl (0-150) Cholesterol Level 230 mg/dl (0-200) HDL Cholesterol 53 mg/dl LDL Cholesterol, Calculated 146 mg/dl VLDL Cholesterol, Calculated 31 mg/dl Cholesterol/HDL Ratio 4.3 Lipase 117 U/L (73-393) Bedside Troponin I 0.000 ng/ml (0-0.045) White Blood Count 10.50 K/uL (4.8-10.8) Red Blood Count 5.08 M/uL (4.7-6.1) Hemoglobin 15.4 g/dL (14.0-18.0) Hematocrit 42.4 % (42-52) Mean Corpuscular Volume 83.5 fL (80-100) Mean Corpuscular Hemoglobin 30.3 pg (25-34) Mean Corpuscular Hemoglobin Concent 36.3 g/dl (32-36) Platelet Count 188 K/uL (130-400) Mean Platelet Volume 10.1 fL (7.4-10.4) Neutrophils (%) (Auto) 63.2 % Lymphocytes (%) (Auto) 26.8 % Monocytes (%) (Auto) 6.8 % Eosinophils (%) (Auto) 2.8 % Basophils (%) (Auto) 0.2 % Neutrophils # (Auto) 6.65 K/uL (1.4-6.5) Lymphocytes # (Auto) 2.81 K/uL (1.2-3.4) Monocytes # (Auto) 0.71 K/uL (0.11-0.59) Eosinophils # (Auto) 0.29 K/uL (0-0.5) Basophils # (Auto) 0.02 K/uL (0-0.2) RDW Standard Deviation 37.5 fL (36.4-46.3) RDW Coefficient of Variation 12.4 % (11.5-14.5) Immature Granulocyte % (Auto) 0.2 % Immature Granulocyte # (Auto) 0.02 K/uL (0.00-0.02) Prothrombin Time 11.4 SECONDS (9.0-12.0) Prothromb Time International Ratio 1.1 (0.9-1.1) Activated Partial Thromboplast Time 28.7 SECONDS (21.0-31.0) Partial Thromboplastin Ratio 1.1 Anion Gap 9.0 mmol/L (3-11) Est Creatinine Clear Calc Drug Dose 117.9 ml/min Estimated GFR () 130.3 Estimated GFR (Non- 112.4 BUN/Creatinine Ratio 10.2 (10-20) Calcium Level 8.7 mg/dl (8.5-10.1) Magnesium Level 2.4 mg/dl (1.8-2.4) Total Bilirubin 0.7 mg/dl (0.2-1) Direct Bilirubin 0.1 mg/dl (0-0.2) Aspartate Amino Transf (AST/SGOT) 21 U/L (15-37) Alanine Aminotransferase (ALT/SGPT) 46 U/L (12-78) Alkaline Phosphatase 62 U/L (45-117) Total Creatine Kinase 80 U/L (39-308) Creatine Kinase MB < 0.5 ng/ml (0.5-3.6) Creatine Kinase MB Ratio (0-3.0) Troponin I < 0.015 ng/ml (0-0.045) Total Protein 6.5 gm/dl (6.4-8.2) Albumin 3.9 gm/dl (3.4-5.0) Test 01/22/17 09:30 Imaging As noted above in history of present illness Impression This is a 36-year-old male with an acute right MCA ischemic stroke of unknown etiology. Residual neurological deficits of mild left hand weakness. No stroke risk factors include dyslipidemia and smoking tobacco. In addition migraine with aura is considered a minor stroke risk factor. Plan I agree with the initiation of aspirin 81 mg daily and statin medication for secondary stroke prevention Permissive hypertension while in hospital. Follow-up echocardiogram results. If transthoracic echocardiogram is unremarkable, I recommend transesophageal echocardiogram for further evaluation of stroke in a young patient. Agree with hypercoagulable workup. BHAVIN, beta-2 glycoprotein, cardiolipin antibodies, prothrombin gene, protein S and C, lupus anticoagulant factor V Leiden and homocystine are pending. In addition I have added on ESR and CRP (I think a cerebral vasculitis is less likely, but is in the differential) EEG shows some nonspecific focal finding but no signs of epileptiform discharges. I discontinued Keppra. Follow-up PT/OT and speech therapies for discharge planning. Avoid hypotension and dehydration Stroke risk factor modifications and recommendations: Blood pressure recommendations for the first month: Permissive hypertension, and after that blood pressure recommendations 130/80-110/70 Total cholesterol goal 100- 200 and LDL goal less than 100 Hemoglobin A1c goal less than 7 (at goal) Encourage cardiovascular exercise at least 3 times a week for 30 minutes. Follow-up in neurology clinic in 1 month for post stroke hospital follow-up. Hypercoagulable workup will be followed up in clinic as likely will take several weeks to come back. Went over stroke signs and symptoms with the patient instructed him that if he ever has any new strokelike symptoms, and call 911 or go to the nearest emergency room for evaluation. Warned him that if these under stress or illness , his previous stroke symptoms could seem worse but this does not represent a new stroke. If his in-hospital stroke workup is unremarkable, when he follows up in neurology clinic, may consider a Holter monitor to evaluate for palpitations and arrhythmias that could present as him for stroke. Thank you for allowing me to participate in this patient's care. If there is any questions or concerns, feel free to call/page me.
--- NOTE | 2017-01-22 11:04 | EEG Procedure Note ---
EEG Procedure Note Date of Service Jan 22, 2017. Start / End Times Start Time: 5:32 AM End Time: 5:[address] Pinzon History This is a 36-year-old male who presented with strokelike symptoms. EEG for further evaluation of seizure etiology. Home Medication List Scheduled Bupropion (Wellbutrin Sr), 100 MG PO AFTERNOON Bupropion HCl (Bupropion HCl Sr), 150 MG PO QAM Erythromycin (Erythromycin), 1 APPLN OPR QID Lansoprazole (Prevacid), 30 MG PO DAILY Multiple Vitamins W/ Minerals (Multi Adult Gummies), 2 TABS PO QAM Scheduled PRN Cyclobenzaprine HCl (Cyclobenzaprine HCl), 10 MG PO HS PRN for Muscle Spasm Fluticasone Propionate (Fluticasone Propionate), 1 SPRAY PANKAJ BID PRN for Allergy Symptoms Hydrocodone/Acetaminophen 5MG/325MG ([place] 5MG/325MG), 0.5-1 TABLET PO BID PRN for Pain Ibuprofen Tab (Advil), 200-600 MG PO Q4H PRN for Pain Lorazepam (Lorazepam), 0.5 MG PO BID PRN for Anxiety Inpatient Medication List Current Inpatient Medications Medications (Trade) Dose Ordered Sig/Arcelia Route Start Time Stop Time Status Last Admin Dose Admin Gadopentetate Dimeglumine (Magnevist) 20 ml UD PRN IV 01/21/17 20:15 01/25/17 20:14 Atorvastatin Calcium (Lipitor Tab) 20 mg QAM PO 01/22/17 09:00 02/21/17 08:59 01/22/17 10:38 20 MG Aspirin (Ecotrin Tab) 81 mg QAM PO 01/22/17 09:00 02/21/17 08:59 01/22/17 10:37 81 MG Miscellaneous Information (Pharmacist Discharge Med Rec Consult) 1 ea UD PRN N/A 01/21/17 22:45 02/20/17 22:44 Acetaminophen (Tylenol Tab) 650 mg Q4H PRN PO 01/21/17 22:45 02/20/17 22:44 Zolpidem Tartrate (Ambien Tab) 5 mg HSZ PRN PO 01/21/17 22:45 02/20/17 22:44 Bupropion HCl (Wellbutrin-Sr Tab) 100 mg DAILY@1400 PO 01/22/17 14:00 02/21/17 13:59 Bupropion HCl (Wellbutrin-Sr Tab) 150 mg QAM PO 01/22/17 09:00 02/21/17 08:59 01/22/17 10:38 150 MG Cyclobenzaprine HCl (Flexeril Tab) 10 mg HS PRN PO 01/21/17 22:45 02/20/17 22:44 Fluticasone Propionate (Flonase Nasal [place]) BID PRN PANKAJ 01/21/17 22:45 02/20/17 22:44 Acetaminophen/ Hydrocodone Bitart ([place] 5/325 Tab) 1 tab BID PRN PO 01/21/17 22:45 02/04/17 22:44 Lorazepam (Ativan Tab) 0.5 mg BID PRN PO 01/21/17 22:45 02/20/17 22:44 Multivitamins/ Minerals (Multivitamin W/ Minerals Tab) 2 tab QAM PO 01/22/17 09:00 02/21/17 08:59 01/22/17 10:37 2 TAB Pantoprazole Sodium (Protonix Tab) 40 mg QAM PO 01/22/17 09:00 02/21/17 08:59 01/22/17 10:37 40 MG Ondansetron HCl (Zofran Inj) 4 mg Q6H PRN IV 01/21/17 22:45 02/20/17 22:44 Nicotine (Nicoderm Cq 14MG Patch) 1 patch QAM TD 01/22/17 09:00 02/21/17 08:59 01/22/17 10:38 1 PATCH Miscellaneous (Remove Nicoderm Patch) 1 ea HS N/A 01/22/17 21:00 02/21/17 20:59 Levetiracetam (Keppra Tab) 500 mg BID PO 01/22/17 09:00 02/21/17 08:59 Description This is a 21 electrode EEG with a single channel dedicated to limited EKG. The electrodes were placed in accordance with the International 10-20 system. Start of this recording the patient was in an awake state. Background was well organized and composed of mixed alpha and beta frequencies. There was near continuous left frontocentral theta slowing and intermittent right temporal theta slowing. There was a well formed symmetric moderate amplitude posterior dominant rhythm of 8-9 Hz that was reactive to eye opening and closure. Hyperventilation was not done. Photic stimulation at various frequencies produced no abnormalities. Sleep was indicated by vertex waves and symmetric sleep spindles. Interpretation This is an abnormal routine EEG secondary to near continuous left fronto- central and intermittent right temporal mild slowing. There was no electrographic Seizures or epileptiform discharges. Clinical Correlation This EEG indicates a functional or structural cerebral dysfunction in the left fronto-central and right temporal area.
--- NOTE | 2017-01-22 13:21 | ECHOCARDIOGRAM REPORT ---
*NOTICE TO RECEIVING LIBERTARIAN AGENCY This information is strictly Confidential and protected under [place] law. [place] law prohibits you from making any further disclosure of this information unless further disclosure is expressly permitted by the written consent of the person to whom it pertains or is authorized by law. A general authorization for the release of medical or other information is not sufficient for this purpose. Hospital accepts no responsibility if the information is made available to any other person, INCLUDING THE PATIENT. Interpretation Summary * Name: BERENICE AGUIRRE Study Date: 01/22/2017 08:19 AM BP: 126/66 mmHg * Patient Location: C.EDINP\S\EDINP 1\S\7 HR: 66 * : 1980 (M/d/yyyy) Gender: Male Height: 67 in * Age: 36 yrs Ethnicity: [place] Weight: 171 lb * Ordering Physician: Brayan Harris * Referring Physician: Self, Referred * Performed By: Shabana Goldsmith RCS * * Reason For Study: Cerebral Ischemia/Embolus * BSA: 1.9 m2 * -- Conclusions -- * 1. Normal left ventricular size and systolic function. EF 60-65%. No regional wall motion abnormalities. No left ventricular hypertrophy. No significant diastolic dysfunction. * 2. Slight bileaflet mitral valve prolapse with trace regurgitation. * 3. No visualized ASD or PFO by 2D imaging or color Doppler. Agitated saline was administered and there was scant bubbles noted within the right atrium after several cardiac cycles (7). This could indicate pulmonary shunt. * 4. Normal estimated right ventricular systolic pressure; 17 mmHg. * 5. No prior study available for comparison. Procedure Details * A complete two-dimensional transthoracic echocardiogram was performed (2D, M-mode, Doppler and color flow Doppler). * A saline contrast injection was performed to assess for cardiac shunting. * The injection was performed through an intravenous line in the right arm. * The attending nurse who injected the saline contrast was Radha Rodriguez RN. * A total of 30 cc of agitated saline was given. Left Ventricle * Normal left ventricular size and systolic function. EF 60-65%. No regional wall motion abnormalities. No left ventricular hypertrophy. No significant diastolic dysfunction. Right Ventricle * The right ventricle is normal in size and function. * The right ventricular systolic function is normal as assessed by tricuspid annular plane systolic excursion (TAPSE) (normal >1.5 cm). Atria * The left atrial size is normal. * Right atrial size is normal. * No visualized ASD or PFO by 2D imaging or color Doppler. Agitated saline was administered and there was scant bubbles noted within the right atrium after several cardiac cycles (7). This could indicate pulmonary shunt. Mitral Valve * Slight bileaflet mitral valve prolapse with trace regurgitation. * There is no mitral valve stenosis. Tricuspid Valve * The tricuspid valve is normal in structure and function. * There is no tricuspid stenosis. * There is trace tricuspid regurgitation. Aortic Valve * The aortic valve is trileaflet. * The aortic valve is normal in structure and function. * No hemodynamically significant valvular aortic stenosis. * No aortic regurgitation is present. Pulmonic Valve * The pulmonary valve is inadequately visualized, but the Doppler data is adequate for interpretation. * There is no pulmonic valvular stenosis. * There is no significant pulmonary regurgitation. Great Vessels * The aortic root is normal size. * Ascending aorta of normal dimension Pericardium/Pleural * There is no pericardial effusion. Great Vessels * Normal inferior vena cava size and collapsability with sniff indicates a normal right atrial pressure of 3 mmHg MMode 2D Measurements and Calculations IVSd 0.98 cm IVSs 1.2 cm LVIDd 5.1 cm LVIDs 3.3 cm LVPWd 1.0 cm LVPWs 1.4 cm IVS/LVPW 0.94 FS 36.2 % EDV(Teich) 124.1 ml ESV(Teich) 42.7 ml EF(Teich) 65.6 % EDV(cubed) 133.0 ml ESV(cubed) 34.5 ml EF(cubed) 74.0 % % IVS thick 23.2 % % LVPW thick 34.2 % LV mass(C)d 190.9 grams LV mass(C)dI 100.9 grams/m\S\2 LV mass(C)s 139.4 grams LV mass(C)sI 73.7 grams/m\S\2 CO(Teich) 7.1 l/min CI(Teich) 3.7 l/min/m\S\2 SV(Teich) 81.4 ml SI(Teich) 43.0 ml/m\S\2 CO(cubed) 8.6 l/min CI(cubed) 4.5 l/min/m\S\2 SV(cubed) 98.5 ml SI(cubed) 52.1 ml/m\S\2 Ao root diam 3.4 cm Ao root area 9.1 cm\S\2 ACS 2.0 cm LA dimension 3.7 cm asc Aorta Diam 2.8 cm LA/Ao 1.1 LVAd ap4 36.2 cm\S\2 LVLd ap4 9.4 cm EDV(MOD-sp4) 114.0 ml LVAs ap4 19.6 cm\S\2 LVLs ap4 7.8 cm ESV(MOD-sp4) 43.0 ml EF(MOD-sp4) 62.3 % LVAd ap2 36.3 cm\S\2 LVLd ap2 9.5 cm EDV(MOD-sp2) 116.0 ml LVAs ap2 17.5 cm\S\2 LVLs ap2 7.0 cm ESV(MOD-sp2) 39.0 ml EF(MOD-sp2) 66.4 % CO(MOD-sp4) 6.2 l/min CI(MOD-sp4) 3.3 l/min/m\S\2 SV(MOD-sp4) 71.0 ml SI(MOD-sp4) 37.5 ml/m\S\2 CO(MOD-sp2) 6.7 l/min CI(MOD-sp2) 3.5 l/min/m\S\2 SV(MOD-sp2) 77.0 ml SI(MOD-sp2) 40.7 ml/m\S\2 Doppler Measurements and Calculations MV E max doron 68.9 cm/sec MV A max doron 43.2 cm/sec MV E/A 1.6 MV P1/2t max doron 74.7 cm/sec MV P1/2t 76.2 msec MVA(P1/2t) 2.9 cm\S\2 MV dec slope 287.3 cm/sec\S\2 MV dec time 0.23 sec Ao V2 max 117.5 cm/sec Ao max PG 5.5 mmHg Ao max PG (full) 0.64 mmHg LV V1 max PG 4.9 mmHg LV V1 max 109.8 cm/sec PA V2 max 113.0 cm/sec PA max PG 5.2 mmHg TR max doron 185.0 cm/sec RVSP(TR) 16.7 mmHg RAP systole 3.0 mmHg
--- NOTE | 2017-01-22 13:48 | Medical Student: [facility] ---
Med Student History & Physical Date & Time of Service: Jan 22, 2017 at 13:36 Chief Complaint: Acute Right Mca Stroke, Left Hand Weakness Primary Care Physician: Jair Casas PA-C History of Present Illness This is a 36 y/o white, right-handed male who presented to the ED yesterday at 1400 after several hours of dizziness and weakness. Patient notes that when he awoke he had severe dizziness and light-headed feelings that resolved after taking meclazine. He then went to work where he had several episodes of dropping objects and difficulty typing/printing and felt that he could not properly use his left hand. He denies any confusion, amnesia, changes in vision , headaches, photophobia, nausea, vomiting, head trauma. Patient does note that he had substantially worse back pain the morning of. He does have chronic back issues but it was worse on the day of this event. At time of exam patient's symptoms have resolved but he still feels like his left hand is not 100% normal. Patient has a pmh significant for migraines with aura that occur a few times a year. When these episodes occur they can last for two days. Patient also has been worked up in the past for palpitations, but had not had any significant findings. Other significant pmh includes a history of anxiety and he is a current smoker of about a half pack a day. Workup in the ER was negative for ICH but demonstrates a right MCA branch infarct with significant collateral circulation. MRA of neck did not demonstrate any significant stenosis, occlusion, or dissection of the carotids or vertebrals. EKG demonstrated PVC's but otherwise was wnl. Past Medical/Surgical History Medical Problems: (1) CVA (cerebral vascular accident) Status: Acute Family History Patient denies FH of CVAs or MIs. Denies and sudden at age under 60. Patient notes that he does have a cousin on mom's side that recently had valve replacement, unsure of why. 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) Allergies Coded Allergies: Ciprofloxacin (Verified Allergy, Intermediate, NUEROMUSCULAR SPASMS/ TREMORS, 6/20/16) Medications Bupropion (Wellbutrin Sr), 100 MG PO AFTERNOON Bupropion HCl (Bupropion HCl Sr), 150 MG PO QAM Cyclobenzaprine HCl (Cyclobenzaprine HCl), 10 MG PO HS PRN for Muscle Spasm Erythromycin (Erythromycin), 1 APPLN OPR QID Fluticasone Propionate (Fluticasone Propionate), 1 SPRAY PANKAJ BID PRN for Allergy Symptoms Hydrocodone/Acetaminophen 5MG/325MG ([place] 5MG/325MG), 0.5-1 TABLET PO BID PRN for Pain Ibuprofen Tab (Advil), 200-600 MG PO Q4H PRN for Pain Lansoprazole (Prevacid), 30 MG PO DAILY Lorazepam (Lorazepam), 0.5 MG PO BID PRN for Anxiety Multiple Vitamins W/ Minerals (Multi Adult Gummies), 2 TABS PO QAM Review of Systems Constitutional: No chills, No fever, No sweats Eyes: No eye pain, No worsening of vision ENT: No hearing loss Respiratory: No cough, No shortness of breath, No sputum, No wheezing Cardiovascular: No chest pain Abdomen: No constipation, No diarrhea, No nausea, No pain, No vomiting Musculoskeletal: + joint pain (shoulder bursitis/tendonitis), + problem reported (back pain, chronic), No muscle pain Neurologic: + weakness (left hand), No memory loss, No paralysis Psychiatric: + anxiety (feels it is well controlled, has not been issue) Endocrine: No fatigue Physical Exam Vital Signs (24 Hours) Date Time Temp Pulse Resp B/P Pulse Ox O2 Delivery O2 Flow Rate FiO2 01/22/17 12:44 37.3 90 20 124/73 96 Room Air 01/22/17 12:00 96 Room Air 01/22/17 11:35 36.7 81 18 106/59 96 Room Air 01/22/17 08:00 96 Room Air 01/22/17 08:00 36.9 79 18 143/97 97 Room Air 01/22/17 07:30 68 01/22/17 03:41 36.7 66 18 126/64 96 Room Air 01/21/17 22:57 74 18 109/64 96 Room Air Manual 01/21/17 20:25 63 18 116/68 97 Room Air 01/21/17 18:20 66 16 133/77 98 Room Air 01/21/17 16:30 50 16 128/69 99 Room Air 01/21/17 14:42 36.9 81 18 143/89 99 Room Air General Appearance: WD/WN, no apparent distress Head: normocephalic, atraumatic Eyes: normal inspection, PERRL, EOMI, sclerae normal Neck: no adenopathy, thyroid normal, no JVD Respiratory/Chest: chest non-tender, lungs clear, normal breath sounds, no respiratory distress, no accessory muscle use Cardiovascular: regular rate, rhythm, no edema, no gallop, no JVD, no murmur, normal peripheral pulses Abdomen/GI: normal bowel sounds, non tender, soft Back: normal inspection, no muscle spasm, normal range of motion Extremities/Musculoskelatal: normal inspection 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, no motor/sensory deficits, alert, normal mood/affect, normal reflexes, oriented x 3, + pertinent finding (finley to heel and finger to nose testing wnl, pronator drift absent, strength 3/3 bilaterally in finger abductors/adductors, wrist flexors/extensors, intrinsic hand muscles) Skin: normal color Diagnostics Laboratory Results Results Past 24 Hours Test 01/21/17 15:16 01/21/17 16:36 01/21/17 23:25 01/22/17 04:37 Range/Units White Blood Count 11.13 10.50 4.8-10.8 K/uL Red Blood Count 5.47 5.08 4.7-6.1 M/uL Hemoglobin 16.9 15.4 14.0-18.0 g/dL Hematocrit 46.8 42.4 42-52 % Mean Corpuscular Volume 85.6 83.5 80-100 fL Mean Corpuscular Hemoglobin 30.9 30.3 25-34 pg Mean Corpuscular Hemoglobin Concent 36.1 36.3 32-36 g/dl Platelet Count 221 188 130-400 K/uL Mean Platelet Volume 10.8 10.1 7.4-10.4 fL Neutrophils (%) (Auto) 76.1 63.2 % Lymphocytes (%) (Auto) 15.4 26.8 % Monocytes (%) (Auto) 6.6 6.8 % Eosinophils (%) (Auto) 1.5 2.8 % Basophils (%) (Auto) 0.2 0.2 % Neutrophils # (Auto) 8.48 6.65 1.4-6.5 K/uL Lymphocytes # (Auto) 1.71 2.81 1.2-3.4 K/uL Monocytes # (Auto) 0.73 0.71 0.11-0.59 K/uL Eosinophils # (Auto) 0.17 0.29 0-0.5 K/uL Basophils # (Auto) 0.02 0.02 0-0.2 K/uL RDW Standard Deviation 39.9 37.5 36.4-46.3 fL RDW Coefficient of Variation 12.7 12.4 11.5-14.5 % Immature Granulocyte % (Auto) 0.2 0.2 % Immature Granulocyte # (Auto) 0.02 0.02 0.00-0.02 K/uL Sodium Level 142 143 136-145 mmol/L Potassium Level 3.7 3.8 3.5-5.1 mmol/L Chloride Level 105 107 98-107 mmol/L Carbon Dioxide Level 28 27 21-32 mmol/L Anion Gap 9.0 9.0 3-11 mmol/L Blood Urea Nitrogen 5 8 7-18 mg/dl Creatinine 0.98 0.83 0.60-1.40 mg/dl Est Creatinine Clear Calc Drug Dose 99.8 117.9 ml/min Estimated GFR () 113.7 130.3 Estimated GFR (Non- 98.1 112.4 BUN/Creatinine Ratio 5.5 10.2 10-20 Random Glucose 92 85 70-99 mg/dl Estimated Average Glucose 105 mg/dl Hemoglobin A1c 5.3 4.5-5.6 % Calcium Level 9.6 8.7 8.5-10.1 mg/dl Total Bilirubin 0.5 0.7 0.2-1 mg/dl Direct Bilirubin 0.1 0.1 0-0.2 mg/dl Aspartate Amino Transf (AST/SGOT) 22 21 15-37 U/L Alanine Aminotransferase (ALT/SGPT) 52 46 12-78 U/L Alkaline Phosphatase 72 62 45-117 U/L Total Protein 8.0 6.5 6.4-8.2 gm/dl Albumin 4.8 3.9 3.4-5.0 gm/dl Triglycerides Level 154 0-150 mg/dl Cholesterol Level 230 0-200 mg/dl HDL Cholesterol 53 mg/dl LDL Cholesterol, Calculated 146 mg/dl VLDL Cholesterol, Calculated 31 mg/dl Cholesterol/HDL Ratio 4.3 Lipase 117 73-393 U/L Bedside Troponin I 0.000 0-0.045 ng/ml Prothrombin Time 11.4 9.0-12.0 SECONDS Prothromb Time International Ratio 1.1 0.9-1.1 Activated Partial Thromboplast Time 28.7 21.0-31.0 SECONDS Partial Thromboplastin Ratio 1.1 Magnesium Level 2.4 1.8-2.4 mg/dl Total Creatine Kinase 80 39-308 U/L Creatine Kinase MB < 0.5 0.5-3.6 ng/ml Creatine Kinase MB Ratio 0-3.0 Troponin I < 0.015 0-0.045 ng/ml Test 01/22/17 09:30 01/22/17 12:50 Range/Units Total Creatine Kinase 78 39-308 U/L Creatine Kinase MB < 0.5 0.5-3.6 ng/ml Creatine Kinase MB Ratio 0-3.0 Troponin I < 0.015 0-0.045 ng/ml Diagnostic Radiology Head CT: No acute ICH Brain MRA: Focal 5 mm cutoff within a proximal M2 branch of the right MCA with immediate reconstitution but diminished perfusion. This is consistent with an area of thrombus. Neck MRA: No significant stenosis, occlusion, dissection of carotids or vertebrals. Brain MRI: Small focal right MCA territory infarct as described above corresponding to the thrombosed M2 branch on the same day brain MRA. Cardiac Echo: 1. Normal left ventricular size and systolic function. EF 60-65%. No regional wall motion abnormalities. No left ventricular hypertrophy. No significant diastolic dysfunction. * 2. Slight bileaflet mitral valve prolapse with trace regurgitation. * 3. No visualized ASD or PFO by 2D imaging or color Doppler. Agitated saline was administered and there was scant bubbles noted within the right atrium after several cardiac cycles (7). This could indicate pulmonary shunt. * 4. Normal estimated right ventricular systolic pressure; 17 mmHg. * 5. No prior study available for comparison. EKG EKG shows normal sinus rhythm at 79 bpm, with frequent PVCs, and no acute ST-T changes. Impression Assessment and Plan This is a 36 y/o male who presents with an acute right M2 branch of MCA stroke with symptoms almost entirely resolved. Patient has no history of hypercoagulopathy and no family history of coagulopathy, CVAs, MIs, or sudden cardiac . Acute right MCA stroke -neuro checks q4 -cardiac rhythm monitoring -2D echo demonstrates slight bileaflet mitral valve prolapse with trace regurgitation and possible pulmonary shunt, but no echo to compare with. -EKG demonstrates PVCs but no Afib. -Coagulopathy workup pending -continue aspirin daily - Keppra 500 mg by mouth twice a day for seizure prevention -PT/OT consult in place Depression/SILVIO -Bupropion SR 150 mg by mouth every morning and 100 mg by mouth every afternoon. -Ativan .5mg BID PRN Hypercholesterolemia -Atorvastatin 20 mg QAM Gastroesophageal reflux disease -pantoprazole 40 mg by mouth daily. Level of Care Telemetry Advanced Directives Existing Advance Directive: No Existing Living Will: No Existing Power of Aquatic Life Laborer: No
--- NOTE | 2017-01-22 13:58 | Medical Student: [facility] ---
Med Student History & Physical Date & Time of Service: Jan 22, 2017 at 13:31 Chief Complaint: Acute Right Mca Stroke, Left Hand Weakness Primary Care Physician: Jair Casas PA-C History of Present Illness Source: patient, hospital records This is a 36 year old male with a history of GERD, anxiety, and heart palpitations, who presented to the emergency room yesterday afternoon following some lightheadedness and loss of left hand and arm strength. He was asymptomatic when he woke up yesterday morning, but at approximately 9:30 a.m. he began to feel somewhat lightheaded. While at work at 10:30, he began to notice that his hand was weak and he kept dropping things with his left hand. He denied any changes in sensation, but because he continued to drop things he said he thought his hand might be numb. However, he denies any perceptible sensory changes. At lunch he dropped his plate and the plate broke while he was heating up some food. At this point he decided he should go to the hospital. Upon arrival to the hospital, he was evaluated by the stroke team at [place], who determined that it was too late to give t-PA. He underwent CT scan, MRI of the brain, MRA of both head and neck, which showed an ischemic stroke of a distal branch of the right MCA. He was admitted to the telemetry unit for further observation and treatment, following an initial dose of aspirin. This morning he reports feeling much better than he did yesterday. Although he says his hand is not quite back to normal, he says that it feels much stronger and he does not have any lightheadedness, which he says resolved within half an hour of the initial onset. He says that when he went to MRI yesterday he was initially somewhat unsteady on his feet, but overnight he had no balance issues while going to the bathroom. He denies any feelings of heart palpitations, shortness of breath, changes in vision or hearing, difficulty swallowing, or current feeling of dizziness. Past Medical/Surgical History Past medical history is significant for heart palpitations which have been thoroughly investigated and for which he was treated initially with propranolol. He also is taking bupropion and lorazepam as needed for anxiety which began when his father was diagnosed with brain cancer just over a year ago. His only other medications are oxycodone and a muscle relaxant for back pain, as well as lansoprazole for GERD. Family History Family history is significant for adult onset type I diabetes mellitus in his mother. He denies any history of stroke, CAD, coagulopathies, cancer, or any other identified illnesses in his biological parents or siblings. 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[employer]) Allergies Coded Allergies: Ciprofloxacin (Verified Allergy, Intermediate, NUEROMUSCULAR SPASMS/ TREMORS, 05/20/16) Medications Bupropion (Wellbutrin Sr), 100 MG PO AFTERNOON Bupropion HCl (Bupropion HCl Sr), 150 MG PO QAM Cyclobenzaprine HCl (Cyclobenzaprine HCl), 10 MG PO HS PRN for Muscle Spasm Erythromycin (Erythromycin), 1 APPLN OPR QID Fluticasone Propionate (Fluticasone Propionate), 1 SPRAY PANKAJ BID PRN for Allergy Symptoms Hydrocodone/Acetaminophen 5MG/325MG ([place] 5MG/325MG), 0.5-1 TABLET PO BID PRN for Pain Ibuprofen Tab (Advil), 200-600 MG PO Q4H PRN for Pain Lansoprazole (Prevacid), 30 MG PO DAILY Lorazepam (Lorazepam), 0.5 MG PO BID PRN for Anxiety Multiple Vitamins W/ Minerals (Multi Adult Gummies), 2 TABS PO QAM Review of Systems Constitutional: No chills, No fever Eyes: No eye pain, No worsening of vision ENT: No hearing loss Respiratory: No cough, No shortness of breath, No wheezing Cardiovascular: No chest pain, No edema Abdomen: No nausea, No pain, No vomiting Musculoskeletal: + joint pain, + muscle pain Neurologic: + balance problems, + weakness, No memory loss, No numbness/ tingling, No vertigo Psychiatric: + anxiety Physical Exam Vital Signs (24 Hours) Date Time Temp Pulse Resp B/P Pulse Ox O2 Delivery O2 Flow Rate FiO2 01/22/17 12:44 37.3 90 20 124/73 96 Room Air 01/22/17 12:00 96 Room Air 01/22/17 11:35 36.7 81 18 106/59 96 Room Air 01/22/17 08:00 96 Room Air 01/22/17 08:00 36.9 79 18 143/97 97 Room Air 01/22/17 07:30 68 01/22/17 03:41 36.7 66 18 126/64 96 Room Air 01/21/17 22:57 74 18 109/64 96 Room Air Manual 01/21/17 20:25 63 18 116/68 97 Room Air 01/21/17 18:20 66 16 133/77 98 Room Air 01/21/17 16:30 50 16 128/69 99 Room Air 01/21/17 14:42 36.9 81 18 143/89 99 Room Air General Appearance: WD/WN, no apparent distress Head: normocephalic, atraumatic Eyes: normal inspection, PERRL, EOMI, sclerae normal, funduscopic exam normal ENT: hearing grossly normal, pharynx normal Neck: supple Respiratory/Chest: lungs clear Cardiovascular: regular rate, rhythm, no gallop, no murmur Neurologic: Patient is alert and oriented x 3 and is pleasant and conversive. He has no dysarthria or aphasia. Visual acuity is intact and equal. Extraocular movements are intact and smooth without nystagmus. Facial sensation is equal and intact bilaterally and bite strength is equal on both sides. Hearing is intact and equal bilaterally. No facial droop or paralysis of any facial muscles. Swallow is intact, and palatal raise is symmetric. Shrug is strong and intact bilaterally. Tongue is midline with good strength bilaterally. When asked to touch his nose with his left pointer finger with his eyes closed he touched approximately 5 cm to the left of his nose. He was able to touch his nose with his right hand. Finger to nose testing with eyes open does not elicit any ataxia or dysmetria. Muscle strength in upper extremities is 5/5 bilaterally with the exception of some mild weakness (4+/5) in dorsal interossei of left hand and extensors of left wrist. Lower extremities are 5/5 strength proximal and distal and equal. Sensation is intact and equal to light touch and vibration bilaterally in distal upper and lower extremities. Diagnostics Laboratory Results Results Past 24 Hours Test 01/21/17 15:16 01/21/17 16:36 01/21/17 23:25 01/22/17 04:37 Range/Units White Blood Count 11.13 10.50 4.8-10.8 K/uL Red Blood Count 5.47 5.08 4.7-6.1 M/uL Hemoglobin 16.9 15.4 14.0-18.0 g/dL Hematocrit 46.8 42.4 42-52 % Mean Corpuscular Volume 85.6 83.5 80-100 fL Mean Corpuscular Hemoglobin 30.9 30.3 25-34 pg Mean Corpuscular Hemoglobin Concent 36.1 36.3 32-36 g/dl Platelet Count 221 188 130-400 K/uL Mean Platelet Volume 10.8 10.1 7.4-10.4 fL Neutrophils (%) (Auto) 76.1 63.2 % Lymphocytes (%) (Auto) 15.4 26.8 % Monocytes (%) (Auto) 6.6 6.8 % Eosinophils (%) (Auto) 1.5 2.8 % Basophils (%) (Auto) 0.2 0.2 % Neutrophils # (Auto) 8.48 6.65 1.4-6.5 K/uL Lymphocytes # (Auto) 1.71 2.81 1.2-3.4 K/uL Monocytes # (Auto) 0.73 0.71 0.11-0.59 K/uL Eosinophils # (Auto) 0.17 0.29 0-0.5 K/uL Basophils # (Auto) 0.02 0.02 0-0.2 K/uL RDW Standard Deviation 39.9 37.5 36.4-46.3 fL RDW Coefficient of Variation 12.7 12.4 11.5-14.5 % Immature Granulocyte % (Auto) 0.2 0.2 % Immature Granulocyte # (Auto) 0.02 0.02 0.00-0.02 K/uL Sodium Level 142 143 136-145 mmol/L Potassium Level 3.7 3.8 3.5-5.1 mmol/L Chloride Level 105 107 98-107 mmol/L Carbon Dioxide Level 28 27 21-32 mmol/L Anion Gap 9.0 9.0 3-11 mmol/L Blood Urea Nitrogen 5 8 7-18 mg/dl Creatinine 0.98 0.83 0.60-1.40 mg/dl Est Creatinine Clear Calc Drug Dose 99.8 117.9 ml/min Estimated GFR () 113.7 130.3 Estimated GFR (Non- 98.1 112.4 BUN/Creatinine Ratio 5.5 10.2 10-20 Random Glucose 92 85 70-99 mg/dl Estimated Average Glucose 105 mg/dl Hemoglobin A1c 5.3 4.5-5.6 % Calcium Level 9.6 8.7 8.5-10.1 mg/dl Total Bilirubin 0.5 0.7 0.2-1 mg/dl Direct Bilirubin 0.1 0.1 0-0.2 mg/dl Aspartate Amino Transf (AST/SGOT) 22 21 15-37 U/L Alanine Aminotransferase (ALT/SGPT) 52 46 12-78 U/L Alkaline Phosphatase 72 62 45-117 U/L Total Protein 8.0 6.5 6.4-8.2 gm/dl Albumin 4.8 3.9 3.4-5.0 gm/dl Triglycerides Level 154 0-150 mg/dl Cholesterol Level 230 0-200 mg/dl HDL Cholesterol 53 mg/dl LDL Cholesterol, Calculated 146 mg/dl VLDL Cholesterol, Calculated 31 mg/dl Cholesterol/HDL Ratio 4.3 Lipase 117 73-393 U/L Bedside Troponin I 0.000 0-0.045 ng/ml Prothrombin Time 11.4 9.0-12.0 SECONDS Prothromb Time International Ratio 1.1 0.9-1.1 Activated Partial Thromboplast Time 28.7 21.0-31.0 SECONDS Partial Thromboplastin Ratio 1.1 Magnesium Level 2.4 1.8-2.4 mg/dl Total Creatine Kinase 80 39-308 U/L Creatine Kinase MB < 0.5 0.5-3.6 ng/ml Creatine Kinase MB Ratio 0-3.0 Troponin I < 0.015 0-0.045 ng/ml Test 01/22/17 09:30 01/22/17 12:50 Range/Units Total Creatine Kinase 78 39-308 U/L Creatine Kinase MB < 0.5 0.5-3.6 ng/ml Creatine Kinase MB Ratio 0-3.0 Troponin I < 0.015 0-0.045 ng/ml Diagnostic Radiology Head CT: No acute intracranial abnormalities or bleeding. Neck MRA: No evidence of stenosis, dissection, aneurysm, or occlusion. Head MRA: Focal 5 mm cutoff in proximal M2 branch of MCA with immediate reconstitution but diminished perfusion consistent with thrombus. Head MRI: Small focal right MCA infarct. EKG Normal except for frequent PVCs. Impression Assessment and Plan This is a 36 yo male with little past medical history who presents with an ischemic stroke of a branch of the right MCA. Clinically the patient is doing extremely well, with his deficits almost completely resolved. Although he has been diagnosed with stroke the etiology remains uncertain given his age and relative lack of risk factors. It's possible that his stroke was due to atherosclerotic disease of the cerebral vessels, given his smoking history and high cholesterol. However, his age is concerning for an alternative etiology. One possibility is a hypercoagulable state due to factor V leiden disease, lupus anticoagulant, antiphospholipid syndrome, or another coagulopathy. Hypercoagulable work-up is pending but has been started, with no immediate abnormalities of PT, PTT, or INR seen. Cardiogenic atheroembolic disease is also possible, or paradoxical stroke through a patent foramen ovale. However, the echocardiogram did not show any evidence of intracardiac thrombus, or any regional wall motion abnormalities that would predispose to clot formation. Plan as of now is to continue aspirin therapy, initiate a high intensity statin such as atorvastatin given his confirmed CVA and elevated lipid levels, and await further results of blood work for possible etiologies. We could also consider adding clopidogrel for additional antiplatelet effect in the short term. He should be evaluated by PT and OT for any residual deficits, and follow up with neurology in the outpatient in 2-4 weeks to go over blood work. Neurology attending addendum: Patient was seen and evaluated with medical student. Please see my separate neurology consult note for full evaluation and recommendations. -Carolyn Steinberg, Level of Care Telemetry Advanced Directives Existing Advance Directive: No Existing Living Will: No Existing Power of Drug Abuse Worker: No Resuscitation Status FULL RESUSCITATION
--- NOTE | 2017-01-22 21:23 | Progress Note ---
Subjective Subjective Date of Service: Jan 22, 2017. Pt evaluation today including: conversation w/ patient, conversation w/ family , physical exam, chart review, review of studies, review of inpatient medication list Problem List Medical Problems: (1) CVA (cerebral vascular accident) Status: Acute Review of Systems Constitutional: No fever ENT: No hearing loss Respiratory: No cough Cardiac: No chest pain Abdomen: No pain Male : No dysuria Neurologic: No memory loss Psychiatric: No depression symptoms Endo: No fatigue Physical Exam Vital Signs Vital Signs Past 24 Hours: Date Time Temp Pulse Resp B/P Pulse Ox O2 Delivery O2 Flow Rate FiO2 01/22/17 20:00 Room Air 01/22/17 19:33 37.2 87 20 110/69 94 Room Air 01/22/17 16:00 Room Air 01/22/17 15:34 36.9 75 18 110/69 96 Room Air 01/22/17 12:44 37.3 90 20 124/73 96 Room Air 01/22/17 12:00 96 Room Air 01/22/17 11:35 36.7 81 18 106/59 96 Room Air 01/22/17 08:00 96 Room Air 01/22/17 08:00 36.9 79 18 143/97 97 Room Air 01/22/17 07:30 68 01/22/17 03:41 36.7 66 18 126/64 96 Room Air 01/21/17 22:57 74 18 109/64 96 Room Air Manual Physical Exam: General Appearance: WD/WN, no apparent distress Eyes: bilateral eyes normal inspection ENT: hearing grossly normal, pharynx normal Neck: supple, no JVD Respiratory/Chest: no respiratory distress Cardiovascular: no edema Abdomen: non tender Extremities: non-tender Neurologic/Psychiatric: alert Medications Medications: Current Inpatient Medications Medications (Trade) Dose Ordered Sig/Arcelia Route Start Time Stop Time Status Last Admin Dose Admin Gadopentetate Dimeglumine (Magnevist) 20 ml UD PRN IV 01/21/17 20:15 01/25/17 20:14 Atorvastatin Calcium (Lipitor Tab) 20 mg QAM PO 01/22/17 09:00 02/21/17 08:59 01/22/17 10:38 20 MG Aspirin (Ecotrin Tab) 81 mg QAM PO 01/22/17 09:00 02/21/17 08:59 01/22/17 10:37 81 MG Miscellaneous Information (Pharmacist Discharge Med Rec Consult) 1 ea UD PRN N/A 01/21/17 22:45 02/20/17 22:44 Acetaminophen (Tylenol Tab) 650 mg Q4H PRN PO 01/21/17 22:45 02/20/17 22:44 01/22/17 19:34 650 MG Zolpidem Tartrate (Ambien Tab) 5 mg HSZ PRN PO 01/21/17 22:45 02/20/17 22:44 Bupropion HCl (Wellbutrin-Sr Tab) 100 mg DAILY@1400 PO 01/22/17 14:00 02/21/17 13:59 01/22/17 14:37 100 MG Bupropion HCl (Wellbutrin-Sr Tab) 150 mg QAM PO 01/22/17 09:00 02/21/17 08:59 01/22/17 10:38 150 MG Cyclobenzaprine HCl (Flexeril Tab) 10 mg HS PRN PO 01/21/17 22:45 02/20/17 22:44 Fluticasone Propionate (Flonase Nasal [place]) BID PRN PANKAJ 01/21/17 22:45 02/20/17 22:44 Acetaminophen/ Hydrocodone Bitart ([place] 5/325 Tab) 1 tab BID PRN PO 01/21/17 22:45 02/04/17 22:44 Lorazepam (Ativan Tab) 0.5 mg BID PRN PO 01/21/17 22:45 02/20/17 22:44 Multivitamins/ Minerals (Multivitamin W/ Minerals Tab) 2 tab QAM PO 01/22/17 09:00 02/21/17 08:59 01/22/17 10:37 2 TAB Pantoprazole Sodium (Protonix Tab) 40 mg QAM PO 01/22/17 09:00 02/21/17 08:59 01/22/17 10:37 40 MG Ondansetron HCl (Zofran Inj) 4 mg Q6H PRN IV 01/21/17 22:45 02/20/17 22:44 Nicotine (Nicoderm Cq 14MG Patch) 1 patch QAM TD 01/22/17 09:00 02/21/17 08:59 01/22/17 10:38 1 PATCH Miscellaneous (Remove Nicoderm Patch) 1 ea HS N/A 01/22/17 21:00 02/21/17 20:59 01/22/17 19:34 1 EA Laboratory Data Labs: Last 24 Hours Test 01/21/17 23:25 01/22/17 04:37 01/22/17 09:30 01/22/17 12:50 White Blood Count 10.50 K/uL Red Blood Count 5.08 M/uL Hemoglobin 15.4 g/dL Hematocrit 42.4 % Mean Corpuscular Volume 83.5 fL Mean Corpuscular Hemoglobin 30.3 pg Mean Corpuscular Hemoglobin Concent 36.3 g/dl Platelet Count 188 K/uL Mean Platelet Volume 10.1 fL Neutrophils (%) (Auto) 63.2 % Lymphocytes (%) (Auto) 26.8 % Monocytes (%) (Auto) 6.8 % Eosinophils (%) (Auto) 2.8 % Basophils (%) (Auto) 0.2 % Neutrophils # (Auto) 6.65 K/uL Lymphocytes # (Auto) 2.81 K/uL Monocytes # (Auto) 0.71 K/uL Eosinophils # (Auto) 0.29 K/uL Basophils # (Auto) 0.02 K/uL RDW Standard Deviation 37.5 fL RDW Coefficient of Variation 12.4 % Immature Granulocyte % (Auto) 0.2 % Immature Granulocyte # (Auto) 0.02 K/uL Prothrombin Time 11.4 SECONDS Prothromb Time International Ratio 1.1 Activated Partial Thromboplast Time 28.7 SECONDS Partial Thromboplastin Ratio 1.1 Sodium Level 143 mmol/L Potassium Level 3.8 mmol/L Chloride Level 107 mmol/L Carbon Dioxide Level 27 mmol/L Anion Gap 9.0 mmol/L Blood Urea Nitrogen 8 mg/dl Creatinine 0.83 mg/dl Est Creatinine Clear Calc Drug Dose 117.9 ml/min Estimated GFR () 130.3 Estimated GFR (Non- 112.4 BUN/Creatinine Ratio 10.2 Random Glucose 85 mg/dl Calcium Level 8.7 mg/dl Magnesium Level 2.4 mg/dl Total Bilirubin 0.7 mg/dl Direct Bilirubin 0.1 mg/dl Aspartate Amino Transf (AST/SGOT) 21 U/L Alanine Aminotransferase (ALT/SGPT) 46 U/L Alkaline Phosphatase 62 U/L Total Creatine Kinase 80 U/L 78 U/L Creatine Kinase MB < 0.5 ng/ml < 0.5 ng/ml Creatine Kinase MB Ratio Troponin I < 0.015 ng/ml < 0.015 ng/ml Total Protein 6.5 gm/dl Albumin 3.9 gm/dl Assessment and Plan A 36-year-old male with 1. acute right MCA ischemic (thrombotic) stroke of unknown etiology.mild left hand weakness. cont tele cont aspirin 81 mg daily and statin medication for secondary stroke prevention cont statins Permissive hypertension while in hospital. echocardiogram results: normal LV function, but some pulmonary shunt. check transesophageal echocardiogram for further evaluation of stroke awaiting hypercoagulable workup. BHAVIN, beta-2 glycoprotein, cardiolipin antibodies, prothrombin gene, protein S and C, lupus anticoagulant factor V Leiden and homocystine are pending. EEG shows some nonspecific focal finding but no signs of epileptiform discharges. neurology stopped Keppra. check PT/OT evals Follow-up in neurology clinic in 1 month for post stroke hospital follow-up. Hypercoagulable workup will be followed up in clinic as likely will take several weeks to come back. may consider a Holter monitor to evaluate for palpitations and arrhythmias FULL code
[2017-01-23] VITALS (18 sets, daily range): BP systolic 98–129; BP diastolic 40–72; PULSE 67–82; TEMP 36.6–36.9; O2SAT 96–99
[2017-01-23 06:23] LABS: BASO % 0.2 %; BASO ABS # 0.02 K/uL (0-0.2); COMPLETE YES; EOS % 4.4 %; HEMATOCRIT 43.9 % (42-52); IG% 0.3 %; LYMPH % 23.4 %; LYMPH ABS # 2.06 K/uL (1.2-3.4); MEAN CELL VOLUME 84.6 fL (80-100); MEAN CORPUSCULAR HEMOGLOBIN 29.9 pg (25-34); MEAN CORPUSCULAR HGB CONC 35.3 g/dl (32-36); MEAN PLATELET VOLUME 10.4 fL (7.4-10.4); MONO % 10.3 %; NEUT % 61.4 %; PLATELET COUNT 188 K/uL (130-400); RED BLOOD COUNT 5.19 M/uL (4.7-6.1); WHITE BLOOD COUNT 8.82 K/uL (4.8-10.8)
[2017-01-23 06:33] LABS: PARTIAL THROMBOPLASTIN RATIO 1.1; PROTHROMBIN TIME (PATIENT) 10.6 SECONDS (9.0-12.0)
[2017-01-23 06:48] LABS: ALT/SGPT 46 U/L (12-78); AST/SGOT 18 U/L (15-37); BLOOD UREA NITROGEN 11 mg/dl (7-18); BUN/CREATININE RATIO 12.1 (10-20); CARBON DIOXIDE 27 mmol/L (21-32); CHLORIDE 106 mmol/L (98-107); CREATININE 0.88 mg/dl (0.60-1.40); GLUCOSE 93 mg/dl (70-99); MAGNESIUM 2.6 mg/dl (1.8-2.4); POTASSIUM 3.7 mmol/L (3.5-5.1); SODIUM 141 mmol/L (136-145)
[2017-01-23 06:51] LABS: ALKALINE PHOSPHATASE 65 U/L (45-117); C-REACTIVE PROTEIN < 0.29 mg/dl (0-0.29)
[2017-01-23] MEDS: ASPIRIN 81 MG ECTAB PO SCH (08:31)
[2017-01-23] MEDS: PANTOprazole SOD 40 MG TAB PO SCH (08:32)
[2017-01-23] MEDS: BuPROPion SR 150 MG TABCR PO SCH (08:32)
[2017-01-23] MEDS: ATORVASTATIN 20 MG TAB PO SCH (08:32)
[2017-01-23] MEDS: CEROVITE ADV FORMULA TAB PO SCH (08:33)
[2017-01-23] MEDS: NICOTINE 14 MG/24 HR TDSY TD SCH (08:33)
--- NOTE | 2017-01-23 09:41 | Medical Student: [facility] ---
Med Student Progress Note Date of Service Jan 23, 2017. Subjective Patient is a 36 year old male who was admitted after confirmed right MCA stroke. He is feeling well today and feels that he has regained almost all of his strength at this point. He does note that he has a mild headache, but attributes it to being made NPO overnight. He denies any confusion, dizziness, photophobia, facial drooping, weakness, amnesia, chest pain, SOB, nausea, vomiting, diarrhea. He denies any pain. Patient had echo performed yesterday and is scheduled for SIDRA today. No other lab results back at this point. Review of Systems Constitutional: No chills, No fever Eyes: No worsening of vision ENT: No hearing loss Respiratory: No cough, No shortness of breath, No sputum, No wheezing Cardiac: No chest pain Abdomen: No diarrhea, No nausea, No pain, No vomiting Musculoskeletal: No joint pain Male : No dysuria Objective Vital Signs Date Time Temp Pulse Resp B/P Pulse Ox O2 Delivery O2 Flow Rate FiO2 01/23/17 08:00 36.6 71 18 103/66 97 Room Air 01/23/17 04:13 36.9 67 16 110/72 97 01/23/17 04:00 Room Air 01/23/17 00:00 Room Air 01/22/17 23:47 36.9 68 18 104/62 97 Room Air 01/22/17 20:00 Room Air 01/22/17 19:33 37.2 87 20 110/69 94 Room Air 01/22/17 16:00 Room Air 01/22/17 15:34 36.9 75 18 110/69 96 Room Air 01/22/17 12:44 37.3 90 20 124/73 96 Room Air 01/22/17 12:00 96 Room Air 01/22/17 11:35 36.7 81 18 106/59 96 Room Air Physical Exam General Appearance: WD/WN, no apparent distress Eyes: bilateral eyes EOMI, bilateral eyes PERRL, bilateral eyes abnormal EOM, bilateral eyes abnormal pupil, bilateral eyes conjunctival hemorrhage, bilateral eyes conjunctival inflammation, bilateral eyes corneal abrasion, bilateral eyes lateral nystagmus, bilateral eyes normal inspection, bilateral eyes pertinent finding, bilateral eyes photophobia, bilateral eyes vertical nystagmus, bilateral eyes vision changes Neck: supple, no adenopathy, thyroid normal Respiratory/Chest: chest non-tender, lungs clear, normal breath sounds, no respiratory distress, no accessory muscle use Cardiovascular: regular rate, rhythm, no edema, no gallop, no JVD, no murmur Abdomen: normal bowel sounds, non tender, soft Extremities: normal range of motion, non-tender, normal inspection, no pedal edema Neurologic/Psychiatric: hydrochloric acid operator II-XII nml as tested, no motor/sensory deficits, alert, normal mood/affect, oriented x 3 Skin: normal color, warm/dry Laboratory Results Last 24 Hours Test 01/22/17 12:50 01/23/17 05:30 Total Creatine Kinase 78 U/L Creatine Kinase MB < 0.5 ng/ml Creatine Kinase MB Ratio Troponin I < 0.015 ng/ml White Blood Count 8.82 K/uL Red Blood Count 5.19 M/uL Hemoglobin 15.5 g/dL Hematocrit 43.9 % Mean Corpuscular Volume 84.6 fL Mean Corpuscular Hemoglobin 29.9 pg Mean Corpuscular Hemoglobin Concent 35.3 g/dl Platelet Count 188 K/uL Mean Platelet Volume 10.4 fL Neutrophils (%) (Auto) 61.4 % Lymphocytes (%) (Auto) 23.4 % Monocytes (%) (Auto) 10.3 % Eosinophils (%) (Auto) 4.4 % Basophils (%) (Auto) 0.2 % Neutrophils # (Auto) 5.41 K/uL Lymphocytes # (Auto) 2.06 K/uL Monocytes # (Auto) 0.91 K/uL Eosinophils # (Auto) 0.39 K/uL Basophils # (Auto) 0.02 K/uL RDW Standard Deviation 38.3 fL RDW Coefficient of Variation 12.5 % Immature Granulocyte % (Auto) 0.3 % Immature Granulocyte # (Auto) 0.03 K/uL Erythrocyte Sedimentation Rate 2 mm/hr Prothrombin Time 10.6 SECONDS Prothromb Time International Ratio 1.0 Activated Partial Thromboplast Time 29.1 SECONDS Partial Thromboplastin Ratio 1.1 Sodium Level 141 mmol/L Potassium Level 3.7 mmol/L Chloride Level 106 mmol/L Carbon Dioxide Level 27 mmol/L Anion Gap 8.0 mmol/L Blood Urea Nitrogen 11 mg/dl Creatinine 0.88 mg/dl Est Creatinine Clear Calc Drug Dose 111.2 ml/min Estimated GFR () 127.2 Estimated GFR (Non- 109.7 BUN/Creatinine Ratio 12.1 Random Glucose 93 mg/dl Calcium Level 9.0 mg/dl Magnesium Level 2.6 mg/dl Total Bilirubin 0.4 mg/dl Direct Bilirubin < 0.1 mg/dl Aspartate Amino Transf (AST/SGOT) 18 U/L Alanine Aminotransferase (ALT/SGPT) 46 U/L Alkaline Phosphatase 65 U/L C-Reactive Protein < 0.29 mg/dl Total Protein 6.8 gm/dl Albumin 3.9 gm/dl Medications Medications Administered Medications (Trade) Dose Ordered Sig/Arcelia Route Start Time Stop Time Status Last Admin Dose Admin Aspirin 324 mg 324 mg NOW STAT PO 01/21/17 20:53 01/21/17 20:54 DC 01/21/17 21:22 324 MG Sodium Chloride (Nss 1000ml) 1,000 ml @ 150 mls/hr Q6H40M ONCE IV 01/21/17 20:53 01/21/17 23:32 DC 01/21/17 21:26 150 MLS/HR Atorvastatin Calcium (Lipitor Tab) 20 mg QAM PO 01/22/17 09:00 02/21/17 08:59 01/23/17 08:32 20 MG Aspirin (Ecotrin Tab) 81 mg QAM PO 01/22/17 09:00 02/21/17 08:59 01/23/17 08:31 81 MG Acetaminophen (Tylenol Tab) 650 mg Q4H PRN PO 01/21/17 22:45 02/20/17 22:44 01/22/17 19:34 650 MG Bupropion HCl (Wellbutrin-Sr Tab) 100 mg DAILY@1400 PO 01/22/17 14:00 02/21/17 13:59 01/22/17 14:37 100 MG Bupropion HCl (Wellbutrin-Sr Tab) 150 mg QAM PO 01/22/17 09:00 02/21/17 08:59 01/23/17 08:32 150 MG Multivitamins/ Minerals (Multivitamin W/ Minerals Tab) 2 tab QAM PO 01/22/17 09:00 02/21/17 08:59 01/23/17 08:33 2 TAB Pantoprazole Sodium (Protonix Tab) 40 mg QAM PO 01/22/17 09:00 02/21/17 08:59 01/23/17 08:32 40 MG Nicotine (Nicoderm Cq 14MG Patch) 1 patch QAM TD 01/22/17 09:00 02/21/17 08:59 01/23/17 08:33 1 PATCH Nicotine (Nicoderm Cq 14MG Patch) 1 patch 2245 ONCE TD 01/21/17 22:45 01/21/17 23:36 DC 01/22/17 00:24 1 PATCH Miscellaneous (Remove Nicoderm Patch) 1 ea HS N/A 01/22/17 21:00 02/21/17 20:59 01/22/17 19:34 1 EA Assessment and Plan Assessment and Plan: This is a 36 y/o male who was admitted for right MCA stroke. Patient has no history of hypercoagulopathy and no family history of coagulopathy, CVAs, MIs, or sudden cardiac . Right MCA stroke -cardiac rhythm monitoring -2D echo demonstrates slight bileaflet mitral valve prolapse with trace regurgitation and possible pulmonary shunt, but no echo to compare with. -Follow up with SIDRA today -EKG demonstrates PVCs but no Afib. -Coagulopathy workup pending -continue aspirin daily - Keppra d/c because no signs of epileptiform change Depression/SILVIO -Bupropion SR 150 mg by mouth every morning and 100 mg by mouth every afternoon. -Ativan .5mg BID PRN Hypercholesterolemia -Atorvastatin 20 mg QAM Gastroesophageal reflux disease -pantoprazole 40 mg by mouth daily.
--- NOTE | 2017-01-23 10:09 | Neurology Progress Notes ---
Neurology Progress Note Date of Service Jan 23, 2017. Subjective Patient denies any new neurological symptoms. As of mild headache last night and this morning. Likely secondary to dehydration and lack of sleep and hospital conditions. Patient reports it is not an abnormal headache for him. Echocardiogram was unremarkable for cardiac embolic sources for stroke. ESR and CRP this morning were within normal limits Objective Date Time Temp Pulse Resp B/P Pulse Ox O2 Delivery O2 Flow Rate FiO2 01/23/17 08:00 36.6 71 18 103/66 97 Room Air 01/23/17 04:13 36.9 67 16 110/72 97 01/23/17 04:00 Room Air 01/23/17 00:00 Room Air 01/22/17 23:47 36.9 68 18 104/62 97 Room Air 01/22/17 20:00 Room Air 01/22/17 19:33 37.2 87 20 110/69 94 Room Air 01/22/17 16:00 Room Air 01/22/17 15:34 36.9 75 18 110/69 96 Room Air 01/22/17 12:44 37.3 90 20 124/73 96 Room Air 01/22/17 12:00 96 Room Air 01/22/17 11:35 36.7 81 18 106/59 96 Room Air Last 24 Hours Test 01/22/17 12:50 01/23/17 05:30 Total Creatine Kinase 78 U/L Creatine Kinase MB < 0.5 ng/ml Creatine Kinase MB Ratio Troponin I < 0.015 ng/ml White Blood Count 8.82 K/uL Red Blood Count 5.19 M/uL Hemoglobin 15.5 g/dL Hematocrit 43.9 % Mean Corpuscular Volume 84.6 fL Mean Corpuscular Hemoglobin 29.9 pg Mean Corpuscular Hemoglobin Concent 35.3 g/dl Platelet Count 188 K/uL Mean Platelet Volume 10.4 fL Neutrophils (%) (Auto) 61.4 % Lymphocytes (%) (Auto) 23.4 % Monocytes (%) (Auto) 10.3 % Eosinophils (%) (Auto) 4.4 % Basophils (%) (Auto) 0.2 % Neutrophils # (Auto) 5.41 K/uL Lymphocytes # (Auto) 2.06 K/uL Monocytes # (Auto) 0.91 K/uL Eosinophils # (Auto) 0.39 K/uL Basophils # (Auto) 0.02 K/uL RDW Standard Deviation 38.3 fL RDW Coefficient of Variation 12.5 % Immature Granulocyte % (Auto) 0.3 % Immature Granulocyte # (Auto) 0.03 K/uL Erythrocyte Sedimentation Rate 2 mm/hr Prothrombin Time 10.6 SECONDS Prothromb Time International Ratio 1.0 Activated Partial Thromboplast Time 29.1 SECONDS Partial Thromboplastin Ratio 1.1 Sodium Level 141 mmol/L Potassium Level 3.7 mmol/L Chloride Level 106 mmol/L Carbon Dioxide Level 27 mmol/L Anion Gap 8.0 mmol/L Blood Urea Nitrogen 11 mg/dl Creatinine 0.88 mg/dl Est Creatinine Clear Calc Drug Dose 111.2 ml/min Estimated GFR () 127.2 Estimated GFR (Non- 109.7 BUN/Creatinine Ratio 12.1 Random Glucose 93 mg/dl Calcium Level 9.0 mg/dl Magnesium Level 2.6 mg/dl Total Bilirubin 0.4 mg/dl Direct Bilirubin < 0.1 mg/dl Aspartate Amino Transf (AST/SGOT) 18 U/L Alanine Aminotransferase (ALT/SGPT) 46 U/L Alkaline Phosphatase 65 U/L C-Reactive Protein < 0.29 mg/dl Total Protein 6.8 gm/dl Albumin 3.9 gm/dl Exam: Gen.: Patient is alert and oriented sitting up in bed in no acute distress HEENT: Normocephalic/ atraumatic, no scleral icterus Neurological examination: Mental status: Patient is alert and oriented to person place and time. Able to give his own history. Good fund of knowledge. Attention and concentration normal for the situation Speech is fluent without any dysarthria or aphasia noted Cranial nerves: No facial droop. Hearing grossly intact. Strength: Moving all extremities equally and antigravity Station within the bed is normal Current Inpatient Medications Medications (Trade) Dose Ordered Sig/Arcelia Route Start Time Stop Time Status Last Admin Dose Admin Gadopentetate Dimeglumine (Magnevist) 20 ml UD PRN IV 01/21/17 20:15 01/25/17 20:14 Atorvastatin Calcium (Lipitor Tab) 20 mg QAM PO 01/22/17 09:00 02/21/17 08:59 01/23/17 08:32 20 MG Aspirin (Ecotrin Tab) 81 mg QAM PO 01/22/17 09:00 02/21/17 08:59 01/23/17 08:31 81 MG Miscellaneous Information (Pharmacist Discharge Med Rec Consult) 1 ea UD PRN N/A 01/21/17 22:45 02/20/17 22:44 Acetaminophen (Tylenol Tab) 650 mg Q4H PRN PO 01/21/17 22:45 02/20/17 22:44 01/22/17 19:34 650 MG Zolpidem Tartrate (Ambien Tab) 5 mg HSZ PRN PO 01/21/17 22:45 02/20/17 22:44 Bupropion HCl (Wellbutrin-Sr Tab) 100 mg DAILY@1400 PO 01/22/17 14:00 02/21/17 13:59 01/22/17 14:37 100 MG Bupropion HCl (Wellbutrin-Sr Tab) 150 mg QAM PO 01/22/17 09:00 02/21/17 08:59 01/23/17 08:32 150 MG Cyclobenzaprine HCl (Flexeril Tab) 10 mg HS PRN PO 01/21/17 22:45 02/20/17 22:44 Fluticasone Propionate (Flonase Nasal [place]) BID PRN PANKAJ 01/21/17 22:45 02/20/17 22:44 Acetaminophen/ Hydrocodone Bitart ([place] 5/325 Tab) 1 tab BID PRN PO 01/21/17 22:45 02/04/17 22:44 Lorazepam (Ativan Tab) 0.5 mg BID PRN PO 01/21/17 22:45 02/20/17 22:44 Multivitamins/ Minerals (Multivitamin W/ Minerals Tab) 2 tab QAM PO 01/22/17 09:00 02/21/17 08:59 01/23/17 08:33 2 TAB Pantoprazole Sodium (Protonix Tab) 40 mg QAM PO 01/22/17 09:00 02/21/17 08:59 01/23/17 08:32 40 MG Ondansetron HCl (Zofran Inj) 4 mg Q6H PRN IV 01/21/17 22:45 02/20/17 22:44 Nicotine (Nicoderm Cq 14MG Patch) 1 patch QAM TD 01/22/17 09:00 02/21/17 08:59 01/23/17 08:33 1 PATCH Miscellaneous (Remove Nicoderm Patch) 1 ea HS N/A 01/22/17 21:00 02/21/17 20:59 01/22/17 19:34 1 EA Impression This is a 36-year-old male with an acute right MCA ischemic stroke of unknown etiology. Residual neurological deficits of mild left hand weakness. No stroke risk factors include dyslipidemia and smoking tobacco. In addition migraine with aura is considered a minor stroke risk factor. Plan Patient has been started on aspirin 81 mg daily and statin medication for secondary stroke prevention Permissive hypertension while in hospital. (Patient does not appear to need any blood pressure medications at this time) Recommend transesophageal echocardiogram for further evaluation of stroke etiology and young patient Follow-up hypercoagulable workup in the outpatient neurology clinic. BHAVIN, beta- 2 glycoprotein, cardiolipin antibodies, prothrombin gene, protein S and C, lupus anticoagulant factor V Leiden and homocystine are pending. Follow-up PT/OT and speech therapies for discharge planning. Anticipate at most will only need outpatient therapy. Avoid hypotension and dehydration Stroke risk factor modifications and recommendations: Blood pressure recommendations for the first month: Permissive hypertension, and after 1 month, blood pressure recommendations 130/80-110/70 Total cholesterol goal 100- 200 and LDL goal less than 100 Hemoglobin A1c goal less than 7 (at goal) Encourage cardiovascular exercise at least 3 times a week for 30 minutes. Follow-up in neurology clinic in 1 month for post stroke hospital follow-up. Hypercoagulable workup will be followed up in clinic as likely will take several weeks to come back. If his in-hospital stroke workup is unremarkable, when he follows up in neurology clinic, may consider a Holter monitor to evaluate for palpitations and arrhythmias that could predispose him for stroke. Thank you for allowing me to participate in this patient's care. If there is any questions or concerns, feel free to call/page me. Anticipate that more than likely he will be discharged later today after transesophageal echocardiogram.
[2017-01-23] MEDS ORDERED: MIDAZOLAM HCL 1 MG/ML 2ML VIAL ONE (10:26)
[2017-01-23] MEDS ORDERED: BENZOCAIN/TETRACA/BUTAM SPRAY 200 APPLN/20 GM SPRY ONE (10:26)
[2017-01-23] MEDS ORDERED: CANNULA ONE ×2 (10:26)
[2017-01-23] MEDS ORDERED: FENTANYL CITRATE INJ 50 MCG/1 ML 2 ML VIAL ONE (10:26)
--- NOTE | 2017-01-23 10:51 | Procedure Note ---
Pre-Mod Sedation Assessment General Date of Moderate Sedation: Jan 23, 2017. Vital Signs: Vital Signs Past 12 Hours Date Time Temp Pulse Resp B/P Pulse Ox O2 Delivery O2 Flow Rate FiO2 01/23/17 10:23 73 16 115/57 96 Room Air 01/23/17 08:00 36.6 71 18 103/66 97 Room Air 01/23/17 04:13 36.9 67 16 110/72 97 01/23/17 04:00 Room Air 01/23/17 00:00 Room Air 01/22/17 23:47 36.9 68 18 104/62 97 Room Air Review Cardiovascular: regular rate, rhythm, no gallop, no murmur Abdomen: normal bowel sounds, non tender, soft Lungs: lungs clear Pre-Sedation Airway Assessment Oral Cavity: WNL Short Thick Neck: No Hx of Sleep Apnea: No Smoking Status: Light Tobacco Smoker Procedure Planning Contraindications-for Mod Sed: None Yes Notes The planned sedation has been discussed with the patient and consent obtained. I have identified the patient, determined the appropriateness of sedation and have assessed the patient immediately prior to the procedure. All medicine(s) and interventions are by my order.
--- NOTE | 2017-01-23 11:27 | Cardiology Procedure Brief Nt ---
Preliminary Cardiology Note Procedure Date Jan 23, 2017. Pre-Procedure Diagnosis stroke Post-Procedure Diagnosis PFO Procedure(s) Performed SIDRA Automatic Vulcanizing Lead Operator Heather Lap Winder(s) Agus Estimated Blood Loss none Preliminary Findings Very Small PFO. Final results to follow. Recommendations As per neurology. Specimens none Complication(s) None Disposition
[2017-01-23] MEDS ORDERED: LPT20 PO (12:23)
[2017-01-23] MEDS ORDERED: ASPEC81 PO (12:23)
--- NOTE | 2017-01-23 12:28 | Discharge Instructions ---
Discharge Instructions Admission Reason for Admission: Acute Right Mca Stroke, Left Hand Weakness Discharge Discharge Diagnosis / Problem: CVA Discharge Goals Goal(s): Decrease discomfort, Increase independence, Improve disease control, Learn about illness, Diagnostic testing, Therapeutic intervention, Screening Activity Recommendations Activity Limitations: resume your previous activity . Instructions / Follow-Up Instructions / Follow-Up ACTIVITY RECOMMENDATIONS: Resume activities as tolerated with no limitations unless specified. _x_ No lifting over _20_ pounds for 24 hours. x__ Do not engage in vigorous exercise, sexual activity, or sports for 24 hours. _x_ Do not drive or operate any motorized equipment for 24 hours. _x_ You may return to work/school tomorrow. x__ Nothing to eat or drink until gag reflex returns. _x_ No HOT or WARM liquids for 4_ hours. __ Avoid "scratchy" foods such as potato chips or pretzels for 24 hours following procedure. SPECIAL CARE: If you experience coughing up or vomiting of blood, contact primary care doctor follow up PCP 2 weeks start Aspirin and atorvastatin . . Current Hospital Diet Patient's current hospital diet: AHA Diet (Heart Healthy) Discharge Diet Recommended Diet: AHA Diet (Heart Healthy) Procedures Procedures Performed: SIDRA: PFO Pending Studies Studies pending at discharge: no Laboratory Results Hemoglobin A1c Test 01/21/17 15:16 Range/Units Estimated Average Glucose 105 mg/dl Hemoglobin A1c 5.3 4.5-5.6 % Lipid Panel Test 01/21/17 15:16 Range/Units Triglycerides Level 154 H 0-150 mg/dl Cholesterol Level 230 H 0-200 mg/dl HDL Cholesterol 53 mg/dl Cholesterol/HDL Ratio 4.3 LDL Cholesterol, Calculated 146 mg/dl Medical Emergencies . Who to Call and When: Medical Emergencies: If at any time you feel your situation is an emergency, please call 911 immediately. . Non-Emergent Contact Non-Emergency issues call your: Primary Care Provider Call Non-Emergent contact if: your pain is concerning you, you have any medication questions . Past History Medical & Surgical History: (1) PFO (patent foramen ovale) (2) CVA (cerebral vascular accident) . "Provider Documentation" section prepared by Tomas Fisher. VTE Core Measure Inpt VTE Proph given/why not?: SCD's
--- NOTE | 2017-01-23 12:34 | Discharge Summary ---
Discharge Summary Date of Service Jan 23, 2017. Discharge Summary Admission Date: Jan 21, 2017 at 23:29 Discharge Date: Jan 23, 2017 Discharge Disposition: Home Principal Diagnosis: CVA Problems/Secondary Diagnoses: pfo Procedures: SIDRA Consultations: neurology Medication Reconciliation New Medications: Aspirin (Aspirin EC Low Dose) 81 Mg Ectab 81 MG PO QAM, #90 TABS 3 Refills Atorvastatin (Atorvastatin Calcium) 20 Mg Tab 20 MG PO QAM, #90 TAB 3 Refills Continued Medications: Bupropion (Wellbutrin Sr) 100 Mg Ertab 100 MG PO AFTERNOON TAKE 1 TABLET EVERY DAY IN THE AFTERNOON Bupropion HCl (Bupropion HCl Sr) 150 Mg Tabcr 150 MG PO QAM Cyclobenzaprine HCl (Cyclobenzaprine HCl) 10 Mg Tab 10 MG PO HS PRN for Muscle Spasm Erythromycin (Erythromycin) 1 Appln/1 Gm Oint 1 APPLN OPR QID INSTILL INTO AFFECTED EYE 4 TIMES A DAY FOR 10 DAYS UNTIL REDNESS AND DISCHARGE RESOLVED Fluticasone Propionate (Fluticasone Propionate) 120 Sprays/6000 Mcg Inha 1 SPRAY PANKAJ BID PRN for Allergy Symptoms Hydrocodone/Acetaminophen 5MG/325MG ([place] 5MG/325MG) Tab 0.5-1 TABLET PO BID PRN for Pain, TAB Ibuprofen Tab (Advil) 200 Mg Tab 200-600 MG PO Q4H PRN for Pain, TAB Lansoprazole (Prevacid) 30 Mg Cap 30 MG PO DAILY Lorazepam (Lorazepam) 0.5 Mg Tab 0.5 MG PO BID PRN for Anxiety Multiple Vitamins W/ Minerals (Multi Adult Gummies) 1 Chw Chw 2 TABS PO QAM Referrals At Discharge Follow up Referrals: Physician Referral - Within 2 Weeks with Jair Casas PA-C Discharge Exam Review of Systems: Constitutional: No chills ENT: No unusual epistaxis Respiratory: No sputum Cardiovascular: No orthopnea Abdomen: No nausea Musculoskeletal: No joint pain Genitourinary - Male: No hematuria, No urinary frequency Neurologic: No memory loss, No weakness Endocrine: No fatigue Physical Exam: General Appearance: WD/WN, no apparent distress Eyes: normal inspection, EOMI ENT: hearing grossly normal, pharynx normal Neck: supple, no JVD Respiratory/Chest: chest non-tender, normal breath sounds Cardiovascular: no edema, no JVD Abdomen / GI: non tender, no organomegaly Extremities: no calf tenderness, normal capillary refill Neurologic/Psychiatric: alert, oriented x 3 Skin: no rash Hospital Course A 36-year-old male with 1. acute right MCA ischemic (thrombotic) stroke of unknown etiology.mild left hand weakness. SIDRA: has small PFO, patient was informed, will continue asa, statins cont aspirin 81 mg daily and statin medication for secondary stroke prevention cont statins TTE results: normal LV function, but some pulmonary shunt. awaiting hypercoagulable workup. BHAVIN, beta-2 glycoprotein, cardiolipin antibodies, prothrombin gene, protein S and C, lupus anticoagulant factor V Leiden and homocystine are pending. EEG shows some nonspecific focal finding but no signs of epileptiform discharges. neurology lc Mac. will need outpatient PT eval Follow-up in neurology clinic in 1 month for post stroke hospital follow-up. Hypercoagulable workup will be followed up in clinic as likely will take several weeks to come back. may consider a Holter monitor to evaluate for palpitations and arrhythmias FULL code f/u PCP 2 weeks Total Time Spent: Greater than 30 minutes This includes examination of the patient, discharge planning, medication reconciliation, and communication with other providers. Discharge Instructions Please refer to the electronic Patient Visit Report (Discharge Instructions) for additional information. Additional Copies To Jair Casas PA-C
--- NOTE | 2017-01-23 13:16 | Pharmacy Progress Note ---
Pharmacist Stroke Counseling Date of Service Jan 23, 2017. Scope Pharmacy has been consulted to provide medication discharge counseling for this patient admitted with acute right ischemic stroke of unknown etiology as per the Pharmacist Discharge Counseling for Stroke Patients Protocol. Medications on Discharge New Medications: Aspirin (Aspirin EC Low Dose) 81 Mg Ectab 81 MG PO QAM, #90 TABS 3 Refills Atorvastatin (Atorvastatin Calcium) 20 Mg Tab 20 MG PO QAM, #90 TAB 3 Refills Continued Medications: Bupropion (Wellbutrin Sr) 100 Mg Ertab 100 MG PO AFTERNOON TAKE 1 TABLET EVERY DAY IN THE AFTERNOON Bupropion HCl (Bupropion HCl Sr) 150 Mg Tabcr 150 MG PO QAM Cyclobenzaprine HCl (Cyclobenzaprine HCl) 10 Mg Tab 10 MG PO HS PRN for Muscle Spasm Erythromycin (Erythromycin) 1 Appln/1 Gm Oint 1 APPLN OPR QID INSTILL INTO AFFECTED EYE 4 TIMES A DAY FOR 10 DAYS UNTIL REDNESS AND DISCHARGE RESOLVED Fluticasone Propionate (Fluticasone Propionate) 120 Sprays/6000 Mcg Inha 1 SPRAY PANKAJ BID PRN for Allergy Symptoms Hydrocodone/Acetaminophen 5MG/325MG ([place] 5MG/325MG) Tab 0.5-1 TABLET PO BID PRN for Pain, TAB Ibuprofen Tab (Advil) 200 Mg Tab 200-600 MG PO Q4H PRN for Pain, TAB Lansoprazole (Prevacid) 30 Mg Cap 30 MG PO DAILY Lorazepam (Lorazepam) 0.5 Mg Tab 0.5 MG PO BID PRN for Anxiety Multiple Vitamins W/ Minerals (Multi Adult Gummies) 1 Chw Chw 2 TABS PO QAM Action The above medications, specifically ones for stroke treatment/prophylaxis ( Aspirin and Atorvastatin), have been reviewed in detail with the patient prior to discharge. This includes indication, common adverse reactions, drug interactions, and medication administration. Medication counseling has been employed using the teach-back method to ensure understanding. Outcome The patient has demonstrated understanding of the medications. Please note, they are aware that the pharmacist will call them within 72 hours post-discharge to confirm that the appropriate medications are being taken and answer any further medication related questions the patient might have at that time. Contact information Individual to be contacted: Patient Phone number: [phone] or Best time to call: anytime 8-4pm Thank you for allowing pharmacy to be involved in the care of this patient. Please call [phone] or [phone] with any additional questions
[2017-01-23] MEDS: BuPROPion SR 100 MG TABCR PO SCH (14:35)
[2017-01-24 07:27] LABS: FACTOR VIII ACTIV**SEND TO GMC 108 % (55 - 145)
--- NOTE | 2017-01-24 08:23 | TEE ---
*NOTICE TO RECEIVING [employer] This information is strictly Confidential and protected under [place] law. [place] law prohibits you from making any further disclosure of this information unless further disclosure is expressly permitted by the written consent of the person to whom it pertains or is authorized by law. A general authorization for the release of medical or other information is not sufficient for this purpose. Hospital accepts no responsibility if the information is made available to any other person, INCLUDING THE PATIENT. Interpretation Summary * Name: BERENICE AGUIRRE Study Date: 01/23/2017 10:31 AM BP: 129/64 mmHg * Patient Location: C.2T\S\S229\S\2 HR: 68 * : 1980 (M/d/yyyy) Gender: Male Height: 67 in * Age: 36 yrs Ethnicity: [place] Weight: 171 lb * Ordering Physician: Tomas Fisher * Referring Physician: Self, Referred * Performed By: Shabana Goldsmith RCS * * Reason For Study: Brain Emboli, Eval for CSOE * BSA: 1.9 m2 * -- Conclusions -- * SIDRA: * 1. Normal left ventricular size and systolic function. EF 55-60%. No significant left ventricular hypertrophy. No regional wall motion abnormalities. * 2. Slight mitral valve prolapse with mild mitral regurgitation. * 3. Very small PFO suggested with very small right to left inter atrial shunt noted following injection of agitated saline. Shunt occurred only during Valsalva. * 4. No thrombus is detected in the left atrial appendage. * 5. Patient tolerated procedure well without known complication. Procedure Details * SIDRA Probe #1 utilized for procedure. * The study was performed in Cardiopulmonary Department. * Time out was conducted by the physician, nurse, and health care technician with positive identification of patient and procedure. * Informed consent for Transesophageal Echocardiogram was obtained prior to the procedure. * An intravenous line was placed. A topical anesthetic agent was used for oropharangeal anesthesia. A bite block was inserted. * The patient's vital signs, including blood pressure, heart rate, pulse oximetry and cardiac rhythm were monitored throughout the procedure . * Fentanyl 50 mcg was administered for procedural sedation. * Midazolam 3 mg administered for sedation. * A multifrequency, multiplane transesopheageal echocardiographic endoscope was inserted and manipulated in the standard fashion to achieve multiplane views. * The transesophageal probe was passed without difficulty. * Contrast injection with agitated saline was performed. * The usual views were obtained; basal, mid-esophageal, transgastric and aortic views. * The patient tolerated the procedure well without evidence of orophangeal or esophageal trauma. * A 2D transesophageal echocardiogram was performed. * A 2D transesophageal echocardiogram with color flow Doppler was performed. * A 2D transesophageal echocardiogram with Doppler and color flow Doppler was performed. Left Ventricle * Normal left ventricular size and systolic function. EF 55-60%. No significant left ventricular hypertrophy. No regional wall motion abnormalities. Right Ventricle * The right ventricle is normal in size and function. Atria * The left atrial size is normal. * No thrombus is detected in the left atrial appendage. * Right atrial size is normal. * Very small PFO suggested with very small right to left inter atrial shunt noted following injection of agitated saline. Shunt occurred only during Valsalva. Mitral Valve * Slight mitral valve prolapse with mild mitral regurgitation. * There is no mitral valve stenosis. Tricuspid Valve * The tricuspid valve is not well visualized, but is grossly normal. * There is no tricuspid stenosis. * There is trace tricuspid regurgitation. Aortic Valve * The aortic valve is normal in structure and function. * The aortic valve is trileaflet. * No hemodynamically significant valvular aortic stenosis. * No aortic regurgitation is present. Pulmonic Valve * The pulmonic valve is not well seen, but is grossly normal. * There is no significant pulmonary regurgitation. Great Vessels * The aortic root is normal size. * Ascending aorta of normal dimension * No significant atherosclerosis noted within visualized portion of thoracic aorta. * Normal pulmonary venous flow pattern. Normal IVC size and inspiratory collapse. Pericardium * There is no pericardial effusion. MMode 2D Measurements and Calculations Ao root diam 3.3 cm Ao root area 8.7 cm\S\2 asc Aorta Diam 2.7 cm Doppler Measurements and Calculations MV E max doron 52.0 cm/sec MV A max doron 38.3 cm/sec MV E/A 1.4 MV dec time 0.15 sec MR max doron 501.8 cm/sec MR max PG 100.7 mmHg TR max doron 148.8 cm/sec
--- NOTE | 2017-01-24 16:16 | Pharmacy Progress Note ---
Pharmacist Post D/C Phone Note Date of phone call: Jan 24, 2017. Individual with whom pharmacist spoke to: Wade (patient) The following questions were reviewed during the phone call with responses listed below each: Can you tell me the medications that you are currently taking as well as when and how you take each medication? Medications Dose Route/Sig Max Daily Dose Days Date Category Dose Instructions Aspirin EC Low Dose (Aspirin) 81 Mg Ectab 81 Mg PO QAM 01/23/17 Rx Atorvastatin Calcium (Atorvastatin) 20 Mg Tab 20 Mg PO QAM 01/23/17 Rx Cyclobenzaprine HCl 10 Mg Tab 10 Mg PO HS PRN 01/21/17 Reported Prevacid (Lansoprazole) 30 Mg Cap 30 Mg PO DAILY 01/21/17 Reported Wellbutrin Sr (Bupropion HCl) 100 Mg Ertab 100 Mg PO AFTERNOON 01/21/17 Reported TAKE 1 TABLET EVERY DAY IN THE AFTERNOON Erythromycin 1 Appln/1 Gm Oint 1 Appln OPR QID (2 more days left) 01/21/17 Reported INSTILL INTO AFFECTED EYE 4 TIMES A DAY FOR 10 DAYS UNTIL REDNESS AND DISCHARGE RESOLVED Lorazepam 0.5 Mg Tab 0.5 Mg PO BID PRN 05/20/16 Reported Bupropion HCl Sr (Bupropion HCl) 150 Mg Tabcr 150 Mg PO QAM 05/20/16 Reported Multi Adult Gummies (Multiple Vitamins W/ Minerals) 1 Chw Chw 2 Tabs PO QAM 10/08/15 Reported Advil (Ibuprofen) 200 Mg Tab 200-600 Mg PO Q4H PRN 12/26/14 Reported [place] 5MG/325MG (Acetaminophen/Hydrocodone Bitart) Tab 0.5-1 Tablet PO BID PRN 12/26/14 Reported When have you missed any doses of your medications? - No What side effects are you having from your medications? - None What questions do you have about your medications? - None -- used for several days in hospital before discharge, read/reviewed all info he received while in hospital What problems are you having obtaining your medications? - None -- got new Rx of atorvastatin filled at pharmacy & bought aspirin over the counter When is your next appointment with your primary care doctor? - February 06 Additional comments: - No other questions/concerns at this time but will call with any further questions As per the Pharmacist Discharge Counseling for Stroke Patients Protocol, this phone call has been completed within 72 hours of discharge. Thank you for allowing us to be involved in the care of this patient.
[2017-01-26 17:34] LABS: ANTITHROMBINIII ACTIVITY** 104 % activity (80-120); B2 GLYCOPROTEIN IGA <9 SAU (<=20); B2 GLYCOPROTEIN IGG <9 SGU (<=20); B2 GLYCOPROTEIN IGM <9 SMU (<=20); LUPUS ANTICOAGULANT** TC36573X Negative (Negative); PROTEIN C ACTIVITY** TC 1777X 194 % (70-180); PROTEIN S ACT(FUNCT)**1779X 115 % (70-150)
== END 2017-01-23 19:30 | disposition home or self-care (01) | DRG 65 ==
LOC: ENRESERVDT → ENRESERVTM → C.EDB 14:41 → EDBEDREQ 22:54 → C.EDINP 23:29 → EDBEDREQ 01-22 11:22 → C.2T 01-22 12:25
PROVIDERS: ADMIT Hospitalist; ATTEND Hospitalist
PROC: B246ZZ4 Ultrasonography of Right and Left Heart, Transesophageal (ICD-10-PCS; principal; 2017-01-23)
DX: I63.311 Cerebral infarction due to thrombosis of right middle cerebral artery (principal); Q21.1 Atrial septal defect; F17.210 Nicotine dependence, cigarettes, uncomplicated; K21.9 Gastro-esophageal reflux disease without esophagitis; Z83.3 Family history of diabetes mellitus; Z82.49 Family history of ischemic heart disease and other diseases of the circulatory system; F32.9 Major depressive disorder, single episode, unspecified; I10 Essential (primary) hypertension; Z79.01 Long term (current) use of anticoagulants; Z79.899 Other long term (current) drug therapy; Z83.79 Family history of other diseases of the digestive system; R53.1 Weakness

== ENCOUNTER → 2017-09-17 | Outpatient (CLI) | payer OTHER ==
[~2017-09-17] MED LIST changes: +ASPEC81 PO; +ATV5X PO; +BUPR100T8 PO; -CYCL10TA6 PO; +CYCL10TA7 PO; +ERYOPO1 OPR; +FLNIN/ NAE; -FLUT0.0529 NAE; -LANS30CA12 PO; +LANS30CA63 PO; +LPT20 PO; +MULT1CHW37 PO; -PROP10TA7 PO; -RANI1TAB75 PO; -RST15 PO; +WLLSR150 PO
--- NOTE | 2017-09-17 11:13 | DIAGNOSTIC IMAGING REPORT ---
R KNEE 1 OR 2 VIEWS ROUTINE HISTORY: 37 years-old Male BURSITIS chronic right knee pain with history of remote injury COMPARISON: None available TECHNIQUE: 2 views of the right knee FINDINGS: Small joint effusion. No acute fracture, dislocation, significant degenerative changes or intra-articular loose body. IMPRESSION: Small joint effusion without acute bony abnormality. The above report was generated using voice recognition software. It may contain grammatical, syntax or spelling errors. Electronically signed by: Guru Gonzalez M.D. 09/17/2017 11:12 AM Dictated Date/Time: 09/17/2017 11:11 AM
== END | disposition home or self-care (01) ==
LOC: C.RAD 10:52
PROVIDERS: ATTEND Physician Assistant
DX: M06.261 Rheumatoid bursitis, right knee (principal)